=== PATIENT | male | born 1935 | race Caucasian/White ===

== ENCOUNTER 2020-03-14 08:51 | Emergency (ER) | payer MEDICARE, SELFPAY ==
--- NOTE | ~2020-03-14 | XR_ITS ---
EXAMINATION: XR chest 1V portable EXAM DATE: 03/14/2020 09:30 INDICATION: sob and covid + . TECHNIQUE: Portable AP frontal chest x-ray was obtained. There is no prior study for comparison. FINDINGS: Moderate amount of patchy ill-defined bilateral acute airspace disease probably COVID-19 pn eum[place] given history provided. No pneumothorax or pleural effusion. The cardiomediastinal silhouette is prominent but magnified on this AP technique. There is aortic arteriosclerosis. IMPRESSION: Moderate patchy bilateral ill-defined acute airspace disease, clinical correlation. Reviewed, dictated and finalized at location B. ER MOUTH CUTTER IMPRESSION: Moderate patchy bilateral ill-defined acute airspace disease, clin ical correlation.
[2020-03-14 08:54] VITALS: BP 138/55; PULSE 64; RESP 14; TEMP 36.6; O2SAT 100
--- NOTE | 2020-03-14 08:59 | ECG_ITS ---
Measurements Intervals [place] Rate: 64 P: 58 [place]: 197 QRS: 124 QRSD: 113 T: 75 QT: 410 QTc: 424 Interpretive Statements SINUS RHYTHM BASELINE WANDER- I, II, AVR, AVL, AVF, V1-V6 BORDERLINE ECG Electronically Signed On 03-14-2020 9:21:18 ENVIRONMENTAL EPIDEMIOLOGIST by Leonidas Handy D.O.
[2020-03-14 09:01] VITALS: PULSE 62; O2SAT 100
[2020-03-14 09:14] LABS: Hematocrit 38.7 % (42.0-52.0); Hemoglobin 13.4 g/dL (14.0-18.0); Mean Corpuscular HGB Conc 34.6 g/dl (32-36); Mean Corpuscular Hemoglobin 31.7 pg (26-34); Mean Corpuscular Volume 91.5 fl (80-100); Mean Platelet Volume 10.5 fl (7.4-10.4); Platelet Count Result 234 k/mm3 (150-375); Red Blood Count 4.23 M/mm3 (4.6-6.20); Red Cell Distribution Width 12.3 % (11.5-14.5); White Blood Count 7.2 K/mm3 (4.5-10.0)
--- NOTE | 2020-03-14 09:14 | PC.NURSE ---
Patient poor historian, unable to provide complete past medical history or medications.
[2020-03-14 09:16] VITALS: BP 130/58; PULSE 62; RESP 12; O2SAT 96
[2020-03-14 09:26] LABS: Alanine Aminotransferase 21 U/L (4-50); Alkaline Phosphatase 53 U/L (38-126); Anion Gap 10 mmol/L (8-16); Aspartate Amino Transferase 35 U/L (17-59); Bilirubin,Total 0.6 mg/dL (0.2-1.3); Blood Urea Nitrogen 30 mg/dL (9-20); Calcium 9.3 mg/dL (8.4-10.2); Carbon Dioxide 25 mmol/L (22-30); Chloride 101 mmol/L (98-107); Estimated Glomerular Filt Rate 34; Glucose 139 mg/dL (75-110); Potassium 3.8 mmol/L (3.4-5.0); Sodium 136 mmol/L (137-145)
[2020-03-14 09:27] LABS: Lactic Acid Reflex 1.7 mmol/L (0.7-2.1)
[2020-03-14 09:34] LABS: Monocytes Absolute Manual 1.36 K/mm3 (0.1-0.90); Monocytes Percent Manual 19 % (3-9); Neutrophils Percent Manual 49 % (46-73); Platelet Estimate Adequate (Adequate); Total Cells Counted 100
--- NOTE | 2020-03-14 10:45 | ED.SOB ---
HPI - SOB/Dyspnea General Chief Complaint: Shortness of Breath/Dyspnea Stated Complaint: WEAKNESS Time Seen by Provider: 03/14/20 08:57 Source: patient Mode of arrival: EMS Limitations: no limitations History of Present Illness HPI Narrative: 84-year-old with a history of transitional cell carcinoma of the bladder, recent diagnosis of Covid was sent from home with complaints of marked weakness and mild shortness of breath as per the daughter he had old low O2 saturations of 84% however upon EMS arrival on room air he started 98%. Patient presently denies any chest pain, shortness of breath he states that he just feels weak. No history of nausea, vomiting or diarrhea. MD elicited complaint: shortness of breath Exacerbating factors: nothing Associated symptoms: denies other symptoms Related Data Home Medications Medication Instructions Recorded Confirmed Unable to Obtain Home Medications 03/14/20 03/14/20 Allergies Allergy/AdvReac Type Severity Reaction Status Date / Time No Known Allergies Verified 08/21/10 07:03 Review of Systems Review of Systems: All systems reviewed & are unremarkable except as noted in HPI and below Eyes: Eyes: Reports as per HPI Cardiovascular: Cardiovascular: Reports no additional cardiovascular complaints Respiratory: Respiratory: Reports no additional respiratory complaints Gastrointestinal: Gastrointestinal: Reports no additional gastrointestinal complaints Musculoskeletal: Musculoskeletal: Reports no additional musculoskeletal complaints Neurologic: Reports system reviewed and no additional complaints, except as documented PMFSH Family History Family History Father Cerebrovascular accident Sibling Cerebrovascular accident Social History Social History Smoking status: Former smoker Second hand tobacco smoke exposure: No Smoking end date: 04/21/05 Alcohol intake: current Exam Narrative: Exam Narrative: GENERAL: Well-appearing, well-nourished, and in no acute distress. HEAD: Normocephalic, atraumatic. EYES: PERRLA and EOMI.. NECK: Supple. CHEST: Clear to auscultation. No respiratory distress. HEART: Regular rate and rhythm. No murmur heard. Normal peripheral pulses. ABDOMEN: Soft, nontender, nondistended, normal active bowel sounds. EXTREMITIES: Normal range of motion. No edema. SKIN: Warm, dry, no rash. NEURO: No focal deficits. Alert and oriented x3. PSYCH: Normal mood and affect. Course Course Emergency Course: Inform patient about his lab work, x-ray findings. He is oxygen saturations are 98 to 96% here in the ER. He is presently denies having any chest discomfort. Prefers to go home. Advised him to return to the ER if he gets worse. Vital Signs Vital signs: Vital Signs Temperature 36.6 C 03/14/20 08:54 Pulse Rate 64 03/14/20 08:54 Respiratory Rate 14 03/14/20 08:54 Blood Pressure 138/55 L 03/14/20 08:54 Pulse Oximetry 100 03/14/20 08:54 Temperature 36.6 C 03/14/20 08:54 Pulse Rate 62 03/14/20 09:16 Respiratory Rate 12 03/14/20 09:16 Blood Pressure 130/58 L 03/14/20 09:16 Pulse Oximetry 96 03/14/20 09:16 MDM - SOB/Dyspnea Lab Data Result diagrams: 03/14/20 09:02 03/14/20 09:02 Labs: Lab Results 03/14/20 03/14/20 03/14/20 Range/Units 09:02 09:02 09:02 WBC 7.2 (4.5-10.0) K/mm3 RBC 4.23 L (4.6-6.20) M/mm3 Hgb 13.4 L (14.0-18.0) g/dL Hct 38.7 L (42.0-52.0) % MCV 91.5 (80-100) fl MCH 31.7 (26-34) pg MCHC 34.6 (32-36) g/dl RDW 12.3 (11.5-14.5) % Plt Count 234 (150-375) k/mm3 MPV 10.5 H (7.4-10.4) fl Immature Gran % (Auto) Not Reportable Neut % (Auto) Not Reportable Lymph % (Auto) Not Reportable [place] % (Auto) Not Reportable Eos % (Auto) Not Reportable Baso % (Auto) Not Reportable Lymph #
[2020-03-14 12:33] VITALS: BP 122/63; PULSE 59; RESP 19; TEMP 37.1; O2SAT 98
== END 2020-03-14 12:35 | disposition home or self-care (01) ==
PROVIDERS: Emergency Provider Family Medicine
DX: U07.1 COVID-19 (principal); R53.1 Weakness; Z85.51 Personal history of malignant neoplasm of bladder
CPT/HCPCS: 36415; 71045; 80053; 83605; 85025; 87040; 93005; 99283

== ENCOUNTER 2023-07-03 12:35 | Observation (INO) | payer MEDICARE, SELFPAY ==
[2023-07-03] VITALS (9 sets, daily range): BP systolic 130–164; BP diastolic 60–98; PULSE 55–96; RESP 14–41; TEMP 36.2–36.8; O2SAT 98–100; BMI 30.9; BMI 31.1
--- NOTE | ~2023-07-03 | XR_ITS ---
EXAMINATION: XR chest 1V portable DATE: 07/03/2023 14:08 INDICATION: Shortness of breath. TECHNIQUE: A single frontal view of the chest was obtained. COMPARISON: Chest single view 03/14/2020 FINDINGS: There is mild atelectasis at left lung base. No pleural effusion or pneumothorax. The heart size is normal. IMPRESSION: 1. Mild atelectasis at left lung base. Reviewed, dictated and finalized at location A.
--- NOTE | 2023-07-03 13:00 | ECG_ITS ---
Measurements Intervals [place] Rate: 62 P: 56 [place]: 196 QRS: 97 QRSD: 101 T: 51 QT: 400 QTc: 408 Interpretive Statements SINUS RHYTHM RIGHT AXIS DEVIATION BASELINE ARTIFACT- II, III, AVR, AVL, AVF, V2-V3 BORDERLINE ECG COMPARED TO ECG 03/14/2020 08:58:39 NO SIGNIFICANT CHANGES Electronically Signed On 07-03-2023 13:06:45 CDT by Leonidas Handy D.O.
[2023-07-03 13:18] LABS: Basophils Absolute Auto 0.1 K/mm3 (0.0-0.1); Basophils Percent Auto 0.7 % (0.2-1.2); Eosinophils Absolute Auto 0.3 K/mm3 (0-0.3); Eosinophils Percent Auto 2.3 % (0-4.4); Hemoglobin 13.4 g/dL (14.0-18.0); Immature Granulocyte Absolute 0.06 K/mm3 (0.00-0.031); Immature Granulocyte Percent A 0.5 % (0-0.5); Lymphocytes Percent Auto 30.2 % (18.3-44.2); Mean Corpuscular HGB Conc 33.5 g/dl (32-36); Mean Corpuscular Hemoglobin 31.2 pg (26-34); Mean Corpuscular Volume 93.2 fl (80-100); Mean Platelet Volume 10.6 fl (7.4-10.4); Monocytes Absolute Auto 1.4 K/mm3 (0.1-0.6); Monocytes Percent Auto 12.3 % (2.6-8.5); Neutrophils Absolute Auto 6.3 K/mm3 (1.3-6.7); Platelet Count Result 229 k/mm3 (150-375); Red Blood Count 4.29 M/mm3 (4.6-6.20); Red Cell Distribution Width 13.2 % (11.5-14.5); White Blood Count 11.6 K/mm3 (4.5-10.0)
[2023-07-03 13:29] LABS: Alanine Aminotransferase 25 U/L (6-50); Albumin Level 3.9 g/dL (3.5-5.1); Alkaline Phosphatase 71 U/L (38-126); Anion Gap 7 mmol/L (8-16); Aspartate Amino Transferase 27 U/L (17-59); Bilirubin,Total 0.4 mg/dL (0.2-1.3); Blood Urea Nitrogen 25 mg/dL (9-20); Calcium 9.5 mg/dL (8.4-10.2); Carbon Dioxide 23 mmol/L (22-30); Chloride 107 mmol/L (98-107); Estimated CRCL calculation 33 ml/min; Estimated Glomerular Filt Rate 41; Glucose 150 mg/dL (65-110); Potassium 3.8 mmol/L (3.4-5.0); Sodium 137 mmol/L (137-145)
[2023-07-03 13:54] LABS: Influenza A QL RT-PCR Negative (Negative); Influenza B QL RT-PCR Negative (Negative); RSV RNA, RT-PCR Negative (Negative); SARS-CoV-2 RNA PCR Negative (Negative)
[2023-07-03] MEDS: SODIUM CHLORIDE 0.9% IV 1,000 ML 999 ML IV CONT (14:39)
[2023-07-03 14:54] LABS: Appearance Urine Turbid (Clear); Bacteria Urine 4+ /hpf; Bilirubin Urine Negative (Negative); Blood Urine 3+ (Negative); Color Urine Dark Yellow (Yellow); Glucose Urine UA Negative (Negative); Ketones Urine Trace mg/dL (Negative); Leukocyte Esterase Ur 3+ LEU/UL (Negative); Need Manual Microscopic Reviewed; Nitrate Urine Positive (Negative); Non Pathogenic Casts >20; Protein Urine 1+ mg/dL (Negative); RBC Urine >100 /hpf (0-2); Squamous Epithelial Cell Urine None Seen /hpf (Few); WBC Urine >100 /hpf (0-3); pH Urine 7.5 (5.0-9.0)
[2023-07-03 14:59] LABS: Add Urine Microscopic? YES
--- NOTE | 2023-07-03 15:30 | ED.GENADULT ---
HPI - General Adult General Chief complaint: Shortness of Breath/Dyspnea Stated complaint: difficulty breathing Time Seen by Provider: 07/03/23 13:34 History of Present Illness HPI narrative: patient is an 80-year-old male who presents ER with reports of increased weakness and potentially difficulty breathing. Patient was at his alf bone he was struggling with his mealtime and tells me he thought he was short of breath. Patient has known dementia. He has no complaints at this time. He appears somnolent withdrawn. Related Data Home Medications Medication Instructions Recorded Confirmed donepezil 10 mg tablet 10 mg PO QHS 07/03/23 07/03/23 donepezil 5 mg tablet 5 mg PO QHS 07/03/23 07/03/23 finasteride 5 mg tablet 5 mg PO DAILY 07/03/23 07/03/23 lorazepam 0.5 mg tablet 0.5 mg PO BID PRN 07/03/23 07/03/23 anxiety/restlessness losartan 25 mg tablet 25 mg PO DAILY 07/03/23 07/03/23 meclizine 25 mg tablet 25 mg PO Q8H PRN Dizziness Or 07/03/23 07/03/23 Vertigo [id number] 300 mcg-K 60 1 tablet PO QAM 07/03/23 07/03/23 mcg-lycop 600 mcg-lutein 300 mcg tablet (Centrum Silver Ultra Men's) terazosin 5 mg capsule 5 mg PO DAILY 07/03/23 07/03/23 Allergies Allergy/AdvReac Type Severity Reaction Status Date / Time No Known Allergies Verified 07/03/23 13:06 Review of Systems Review of Systems: ROS unobtainable: Yes unobtainable due to mental status [facility] Past Medical History Medical History (Updated 07/03/23 @ 18:20 by Merlin Mitchell MD) BPH (benign prostatic hyperplasia) CKD (chronic kidney disease) Degenerative joint disease Diverticulosis History of anal fissures History of peptic ulcer disease gastric ulcerations and duodenal ulcer June 2010 Hx of Hpylori HTN (hypertension), benign Hx of bladder cancer 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 He quit smoking in 2019. No alcohol or drug use. Code status - DNR Smoking status: Former smoker Second hand tobacco smoke exposure: No Alcohol intake: current Substance use: never Spiritual care concerns: No Exam Narrative: GENERAL: fatigue-appearing, well-nourished, and in no acute distress. HEAD: Normocephalic, atraumatic. ENT: Mucous membranes moist. NECK: Supple. CHEST: Clear to auscultation. No respiratory distress. HEART: Regular rate and rhythm. Normal peripheral pulses. ABDOMEN: Soft, nontender, nondistended. EXTREMITIES: Normal range of motion. No edema. SKIN: Warm, dry, no rash. NEURO: Alert and oriented x1. PSYCH: Normal mood and affect. Course Course Emergency Course: Patient with significant UTI. Recommend observation. He appears dry as well. After 1 L of IV fluid he is more energetic. Vital Signs Vital signs: Vital Signs Temperature 98.2 F 07/03/23 12:37 Pulse Rate 68 07/03/23 12:37 Respiratory Rate 20 07/03/23 12:37 Blood Pressure 155/67 H 07/03/23 12:37 Pulse Oximetry 100 07/03/23 12:37 Oxygen Delivery Room Air 07/03/23 12:37 Temperature 97.7 F 07/03/23 17:26 Pulse Rate 65 07/03/23 17:26 Respiratory Rate 18 07/03/23 17:26 Blood Pressure 156/69 H 07/03/23 17:26 Pulse Oximetry 99 07/03/23 17:26 Oxygen Delivery Room Air 07/03/23 17:59 Medical Decision Making Vital Signs
--- NOTE | 2023-07-03 17:20 | PM.IMHP ---
H&P: HPI History of Present Illness Date/Time: 07/03/23 17:20 Chief Complaint: Shortness of breath Narrative: 88yo male with hx of bladder cancer, CKD, dementia and enlarged prostate here for shortness of breath. Patient is alert but confused and unable to provide history. History obtained from 2 daughters in the room. Patient has known bladder cancer and enlarged prostate and follows with Urology (Dr Ngo) at [facility] yearly. He was last seen about 18 months ago (missed last appointment due to his 's illness) with cystoscopy. Last report here dated 08/04/13 showed no bladder cancer but showing obstructive prostate. The patient's passes away 6 weeks ago and the patient was moved to [facility] about 5 weeks ago. He is what sounds like assisted living memory care unit. He is receiving PT/OT infrequently there. He does sleep a lot per family which is chronic but he has been participating in activities. Nursing notes state patient is alert and orient x1. He was doing well until the day of admission when OT noted patient was more unsteady on his feet and recommended walker instead of his cane. Patient at lunch today was not eating much and subsequently developed shortness of breath. EMS was called and vital signs were stable except RR 24 with SpO2 98%. He was also dizzy but no other symptoms per family. In the ED, his vital signs were stable with RR 20 and 100% on room air. He had trouble voiding but was eventually able to do so without assistance. Influenza, COVID and RSV PCR were negative. WBC 11.6K without shift but with a monocytosis, Cr 1.6, glucose 150 and a UA consistent with UTI. CXR reviewed personally showing mild atelectasis left lung base. EKG showing normal sinus rhythm without change froom prior EKGs. Blood and urine cultures obtained and started on Rocephin. He was also given IVF fluids. He was admitted for further care. 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 Hx of colonic polyps Hx of vertigo Hypercholesterolemia Meniere's disease, unspecified ear Unspecified dementia, unspecified severity, without behavioral disturbance, psychotic disturbance, mood disturbance, and anxiety Surgical History Surgical History (Updated 07/03/23 @ 17:31 by Merlin Mitchell MD) 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 He quit smoking in 2019. No alcohol or drug use. Code status - DNR Smoking status: Former smoker Second hand tobacco smoke exposure: No Alcohol intake: current Substance use: never Spiritual care concerns: No Meds Home Medications and Allergies Home Medications Medication Instructions Recorded Confirmed Type donepezil 10 mg tablet 10 mg PO QHS 07/03/23 07/03/23 History donepezil 5 mg tablet 5 mg PO QHS 07/03/23 07/03/23 History finasteride 5 mg tablet 5 mg PO DAILY 07/03/23 07/03/23 History lorazepam 0.5 mg tablet 0.5 mg PO BID PRN 07/03/23 07/03/23 History anxiety/restlessness losartan 25 mg tablet 25 mg PO DAILY 07/03/23 07/03/23 History meclizine 25 mg tablet 25 mg PO Q8H PRN Dizziness Or 07/03/23 07/03/23 History Vertigo dlnulczd-gk-djzpo 300 mcg-K 60 1 tablet PO QAM 07/03/23 07/03/23 History mcg-lycop 600 mcg-lutein 300 mcg tablet (Centrum Silver Ultra Men's) terazosin 5 mg caps
--- NOTE | 2023-07-03 17:34 | ADMGEN ---
This patient, Jeramy Perez, was admitted to Medical Room 244-. Patient/family oriented to hospital policies and general routines including ID bracelet, bed and alarms, visiting hours, pain management, procedures, bathroom and other care routines, personal items, smoking policy, room service/diet, and visiting hours. Information on how to activate the Rapid Response Team has been discussed. Patient/Family are encouraged to report perceived risks to care and to ask questions if they do not understand what they are told or what they should do.
[2023-07-03] MEDS: DONEPEZIL HCL 5 MG TABLET PO (20:23)
[2023-07-03] MEDS: DONEPEZIL HCL 10 MG TABLET PO (20:23)
[2023-07-03] MEDS: LORazepam (*CRX) 0.5 MG TABLET PO (21:48)
[2023-07-04 05:29] VITALS: BP 144/57; RESP 20; TEMP 36.1; O2SAT 98
[2023-07-04 06:09] LABS: Basophils Absolute Auto 0.1 K/mm3 (0.0-0.1); Basophils Percent Auto 0.8 % (0.2-1.2); Eosinophils Absolute Auto 0.3 K/mm3 (0-0.3); Eosinophils Percent Auto 2.9 % (0-4.4); Hematocrit 38.3 % (42.0-52.0); Hemoglobin 12.7 g/dL (14.0-18.0); Immature Granulocyte Absolute 0.06 K/mm3 (0.00-0.031); Immature Granulocyte Percent A 0.5 % (0-0.5); Lymphocytes Absolute Auto 3.72 K/mm3 (0.9-3.2); Lymphocytes Percent Auto 33.2 % (18.3-44.2); Mean Corpuscular HGB Conc 33.2 g/dl (32-36); Mean Corpuscular Hemoglobin 31.3 pg (26-34); Mean Corpuscular Volume 94.3 fl (80-100); Mean Platelet Volume 10.5 fl (7.4-10.4); Monocytes Absolute Auto 1.5 K/mm3 (0.1-0.6); Monocytes Percent Auto 13.4 % (2.6-8.5); Neutrophils Absolute Auto 5.5 K/mm3 (1.3-6.7); Neutrophils Percent Auto 49.2 % (45.5-73.1); Platelet Count Result 222 k/mm3 (150-375); Red Blood Count 4.06 M/mm3 (4.6-6.20); Red Cell Distribution Width 13.1 % (11.5-14.5); White Blood Count 11.2 K/mm3 (4.5-10.0)
[2023-07-04 06:20] LABS: Albumin Level 3.6 g/dL (3.5-5.1); Anion Gap 8 mmol/L (8-16); Blood Urea Nitrogen 23 mg/dL (9-20); Carbon Dioxide 21 mmol/L (22-30); Chloride 108 mmol/L (98-107); Estimated CRCL calculation 31 ml/min; Estimated Glomerular Filt Rate 38; Glucose 100 mg/dL (65-110); Phosphorus 3.7 mg/dL (2.5-4.5); Potassium 3.7 mmol/L (3.4-5.0); Sodium 137 mmol/L (137-145)
[2023-07-04] MEDS: OPTI-GEN TAB 1 TABLET PO (08:22)
[2023-07-04] MEDS: TERAZOSIN HCL 5 MG CAPSULE PO (08:22)
[2023-07-04] MEDS: LOSARTAN POTASSIUM 25 MG TABLET PO (08:22)
[2023-07-04] MEDS: FINASTERIDE 5 MG TABLET PO (08:23)
[2023-07-04 08:55] LABS: Free T4 Free Thyroxine Reflex 0.83 ng/dL (0.78-2.19)
[2023-07-04] MEDS: ENOXAPARIN 40 MG/0.4 ML SYRINGE SUB-Q (10:23)
[2023-07-04 11:25] LABS: Total Triiodothyronine (T3) 1.09 NG/ML (0.97-1.69)
[2023-07-04 14:00] VITALS: BP 148/55; PULSE 63; RESP 20; TEMP 36.6; O2SAT 100
--- NOTE | 2023-07-04 14:16 | PC.NURSE ---
On 07/04/23, the student, [Robbie Foley], provided care and completed [facility] documentation on this patient. I have reviewed the student's documentation and agree with the findings.
--- NOTE | 2023-07-04 15:32 | PM.IMPN ---
Progress Note: A&P Assessment and Plan (1) Acute UTI: Code(s): N39.0 - Urinary tract infection, site not specified Status: Acute Assessment and Plan: Patient presents with SOB and found to have UTI. He was having trouble voiding so his SOB could be related to difficulty voiding and/or anxiety. UA is consistent with UTI. UCx and BCx collected. Rocephin started. Follow up on Cx results. (2) BPH (benign prostatic hyperplasia): Code(s): N40.0 - Benign prostatic hyperplasia without lower urinary tract symptoms Status: Acute Assessment and Plan: Patient had trouble voiding in the ED but resolved and no clinical evidence of retention. We continued finasteride and terazosin. PVR ordered (3) CKD (chronic kidney disease): Code(s): N18.9 - Chronic kidney disease, unspecified Status: Acute Assessment and Plan: Patient has CKD with last Cr listed being 1.9 in 2019. Cr here is 1.6-1.7 so well within his baseline. Follow. (4) HTN (hypertension), benign: Code(s): I10 - Essential (primary) hypertension Status: Acute Assessment and Plan: Patient's blood pressure elevated on admission but could be related to stress and pain (retention?). Patient's blood pressure was reviewed on 07/03 Blood pressure remains reasonably well controlled. Will continue to monitor (5) Hx of bladder cancer: Code(s): Z85.51 - Personal history of malignant neoplasm of bladder Status: Acute Assessment and Plan: Patient has a hx of bladder CA and is being followed yearly by [facility] Urology. Recommended patient get back in to see the Urologist once his infection has cleared. (6) Unspecified dementia, unspecified severity, without behavioral disturbance, psychotic disturbance, mood disturbance, and anxiety: Code(s): F03.90 - Unspecified dementia, unspecified severity, without behavioral disturbance, psychotic disturbance, mood disturbance, and anxiety Status: Acute Assessment and Plan: Patient with dementia with behavioral disturbance. We resumed his donepezil. Minimize distractions. Lorazepam prn for agitation. Spoke with daughters and they agreed to DNR status so code status changed. PT/OT ordered since he is probably assisted living memory care and will need evaluation before he can return Plan DVT prophylaxis - Lovenox Code status - DNR Subjective Date/time seen: 07/04/23 15:32 Interval history: 88yo male with hx of bladder cancer, CKD, dementia and enlarged prostate here for shortness of breath found to have UTI.? No complaints. He is alert but confused so hx unreliable Review of Systems Review of Systems: ROS unobtainable: Yes unobtainable due to mental status Exam Narrative: AF 97.8 148/55 63 20 100% ra Gen - NARD Chest - clear anteriorly CV - RRR S1/S2 Abd - Soft, NT/ND, Positive BS. bladder does not feel distended Ext - No pedal edema Psych - Nml mood and affect Skin - Warm and dry Objective Data Vital Signs Vital Signs: Vital Signs - 24 hr 07/03/23 15:59 07/03/23 16:31 07/03/23 17:26 Temperature 97.7 F Pulse Rate 55 L 60 65 Respiratory Rate 18 41 H 18 Blood Pressure 147/94 H 149/98 H 156/69 H Pulse Oximetry 100 99 99 Oxygen Delivery 07/03/23 17:59 07/03/23 20:10 07/03/23 20:00 Temperature 97.2 F L Pulse Rate 63 Respiratory Rate 20 Blood Pressure 130/60 Pulse Oximetry 98 Oxygen Delivery Room Air Room Air 07/04/23 05:29 07/04/23 09:38 07/04/23 10:03 Temperature 96.9 F L Pulse Rate Respiratory Rate 20 Blood Pressure 144/57 H Pulse Oximetry 98 Oxygen Delivery Room Air Room Air 07/04/23 09:00 07/04/23 14:00 07/04/23 08:20 Temperature 97.8 F Pulse Rate 63 Respiratory Rate 20 Blood Pressure 148/55 H Pulse Oximetry 100 Oxygen Delivery Room Air Room Air Intake/Output Intake/Output: Intake & Output 07/01/23 07/02/23
[2023-07-04] MEDS: DONEPEZIL HCL 10 MG TABLET PO (20:08)
[2023-07-04] MEDS: DONEPEZIL HCL 5 MG TABLET PO (20:08)
[2023-07-04 20:19] VITALS: BP 160/63; PULSE 58; RESP 18; TEMP 36.4; O2SAT 98
[2023-07-05 05:47] LABS: Basophils Absolute Auto 0.1 K/mm3 (0.0-0.1); Basophils Percent Auto 0.7 % (0.2-1.2); Eosinophils Absolute Auto 0.3 K/mm3 (0-0.3); Eosinophils Percent Auto 3.4 % (0-4.4); Hemoglobin 13.2 g/dL (14.0-18.0); Immature Granulocyte Absolute 0.07 K/mm3 (0.00-0.031); Immature Granulocyte Percent A 0.7 % (0-0.5); Immature Platelet Fraction Pct 9.9 % (0.9-11.2); Lymphocytes Absolute Auto 3.27 K/mm3 (0.9-3.2); Lymphocytes Percent Auto 32.7 % (18.3-44.2); Mean Corpuscular HGB Conc 32.2 g/dl (32-36); Mean Corpuscular Hemoglobin 30.8 pg (26-34); Mean Corpuscular Volume 95.8 fl (80-100); Mean Platelet Volume 11.2 fl (7.4-10.4); Monocytes Absolute Auto 1.3 K/mm3 (0.1-0.6); Monocytes Percent Auto 12.5 % (2.6-8.5); Platelet Count Result 148 k/mm3 (150-375); Red Blood Count 4.28 M/mm3 (4.6-6.20); Red Cell Distribution Width 12.8 % (11.5-14.5)
[2023-07-05 05:55] LABS: Anion Gap 9 mmol/L (8-16); Blood Urea Nitrogen 20 mg/dL (9-20); Calcium 9.5 mg/dL (8.4-10.2); Carbon Dioxide 20 mmol/L (22-30); Chloride 107 mmol/L (98-107); Estimated CRCL calculation 35 ml/min; Estimated Glomerular Filt Rate 44; Glucose 102 mg/dL (65-110); Potassium 3.6 mmol/L (3.4-5.0); Sodium 136 mmol/L (137-145)
[2023-07-05 06:00] VITALS: BP 149/84; PULSE 56; RESP 18; TEMP 36.8; O2SAT 100
[2023-07-05] MEDS: FINASTERIDE 5 MG TABLET PO (09:02)
[2023-07-05] MEDS: OPTI-GEN TAB 1 TABLET PO (09:03)
[2023-07-05] MEDS: ENOXAPARIN 40 MG/0.4 ML SYRINGE SUB-Q (09:03)
[2023-07-05] MEDS: TERAZOSIN HCL 5 MG CAPSULE PO (09:03)
[2023-07-05] MEDS: LOSARTAN POTASSIUM 25 MG TABLET PO (09:03)
--- NOTE | 2023-07-05 12:20 | PM.DS ---
DS: Admitting Diagnosis Discharge Date 07/05/23 Admitting Diagnosis Shortness of breath DS: Discharge Diagnosis Discharge Diagnosis (1) Acute UTI: Code(s): N39.0 - Urinary tract infection, site not specified Status: Acute (2) BPH (benign prostatic hyperplasia): Code(s): N40.0 - Benign prostatic hyperplasia without lower urinary tract symptoms Status: Acute (3) CKD (chronic kidney disease): Code(s): N18.9 - Chronic kidney disease, unspecified Status: Acute (4) HTN (hypertension), benign: Code(s): I10 - Essential (primary) hypertension Status: Acute (5) Hx of bladder cancer: Code(s): Z85.51 - Personal history of malignant neoplasm of bladder Status: Acute (6) Unspecified dementia, unspecified severity, without behavioral disturbance, psychotic disturbance, mood disturbance, and anxiety: Code(s): F03.90 - Unspecified dementia, unspecified severity, without behavioral disturbance, psychotic disturbance, mood disturbance, and anxiety Status: Acute DS: Summary Hospital Course Reason for hospitalization: 88yo male with hx of bladder cancer, CKD, dementia and enlarged prostate here for shortness of breath found to have UTI.?Please see H&P for details. Hospital Course: Patient presents with SOB. In the ED, his vital signs were stable with RR 20 and 100% on room air. He had trouble voiding in the ED but was eventually able to void without assistance. Influenza, COVID and RSV PCR were negative. WBC 11.6K without shift but with a monocytosis, Cr 1.6, glucose 150 and a UA consistent with UTI. CXR reviewed personally showing mild atelectasis left lung base. EKG showing normal sinus rhythm without change froom prior EKGs. UA is consistent with UTI. Blood and urine cultures obtained and started on Rocephin. He was also given IVF fluids. We continued finasteride and terazosin. PVR ordered showing only minimal urine retention. Patient has CKD with last Cr listed being 1.9 in 2019. Cr here is 1.6-1.7 and was well within his baseline. Patient's blood pressure was elevated on admission felt related to stress and pain. Blood pressure was reasonably well controlled during his hospital course. Patient with dementia with behavioral disturbance. We resumed his donepezil. Lorazepam prn for agitation. Spoke with daughters and they agreed to DNR status so code status changed. PT/OT ordered since he is assisted living memory care. He did well with therapy. BCx remained negative. UCx grew Morganella sensitive to ceftazidime and Bactrim. CrCl 35 so dose adjustment needed. He overall did well and was able to be discharged on 07/05/23. Status at Discharge Cognitive/behavioral status at discharge: stable Time Spent with Patient Time attestation: Total time spent providing and/or coordinating discharge services: 35 minutes Time spent: Greater than 30 minutes Exam Narrative: AF 98.2 149/84 56 18 100% ra Gen - NARD Chest - CTA bilaterally, nml RR CV - RRR S1/S2 Abd - Soft, NT/ND, Positive BS Ext - No pedal edema Psych - Nml mood and affect Skin - Warm and dry DS: Data Data Completed and Pending Labs on day of discharge: Labs from last 24 hours 07/05/23 05:20 WBC 10.0 RBC 4.28 L Hgb 13.2 L Hct 41.0 L MCV 95.8 MCH 30.8 MCHC 32.2 RDW 12.8 Plt Count 148 L MPV 11.2 H Immature Gran % (Auto) 0.7 H Neut % (Auto) 50.0 Lymph % (Auto) 32.7 [place] % (Auto) 12.5 H Eos % (Auto) 3.4 Baso % (Auto) 0.7 Lymph # (Auto) 3.27 H [place] # (Auto) 1.3 H Eos # (Auto) 0.3 Baso # (Auto) 0.1 Abs Immat Gran (auto) 0.07 H Absolute Neuts (auto) 5.0 Absolute Nucleated RBC 0.000 Nucleated RBC % 0.0 % Immature Plt Fraction 9.9 Sodium 136 L Potassium 3.6 Chloride 107 Carbon Dioxide 20 L Anion Gap 9 BUN 20 Creatinine 1.50 H Estim Creat Clear Calc 35 Estimated GFR 44 L Glucose 102 Calcium 9.5 Preliminary micro results at dischar
== END 2023-07-05 13:45 | disposition home health service (06) ==
LOC: ANHED 15:30 → ANH2MED 17:02
PROVIDERS: Admitting Provider Family Medicine; Emergency Provider Emergency Medicine; PCP Family Medicine; Visit Provider Internal Medicine
DX: N39.0 Urinary tract infection, site not specified (principal); B96.4 Proteus (mirabilis) (morganii) as the cause of diseases classified elsewhere; R53.1 Weakness; I12.9 Hypertensive chronic kidney disease with stage 1 through stage 4 chronic kidney disease, or unspecified chronic kidney disease; N18.9 Chronic kidney disease, unspecified; R94.31 Abnormal electrocardiogram [ECG] [EKG]; Z20.822 Contact with and (suspected) exposure to COVID-19; R06.02 Shortness of breath; F03.90 Unspecified dementia, unspecified severity, without behavioral disturbance, psychotic disturbance, mood disturbance, and anxiety; Z96.641 Presence of right artificial hip joint; N40.0 Benign prostatic hyperplasia without lower urinary tract symptoms; R91.8 Other nonspecific abnormal finding of lung field; Z66 Do not resuscitate; Z87.891 Personal history of nicotine dependence; Z85.51 Personal history of malignant neoplasm of bladder; Z79.899 Other long term (current) drug therapy
CPT/HCPCS: 36415; 71045; 80048; 80053; 80069; 82607; 82746; 84439; 84443; 84480; 85025; 85055; 87040; 87077; 87086; 87088; 87186; 87637; 93005; 96365; 96372; 97110; 97116; 97161; 97165; 99285; A9270; G0378; J0696; J1650; J7030

== ENCOUNTER 2023-07-17 07:38 | Emergency (ER) | payer MEDICARE, SELFPAY ==
[2023-07-17] VITALS (19 sets, daily range): BP systolic 136–141; BP diastolic 71–83; PULSE 58–79; RESP 13–22; TEMP 36.7; O2SAT 90–100
--- NOTE | ~2023-07-17 | CT_ITS ---
EXAMINATION: CT brain wo con DATE: 07/17/2023 11:50 INDICATION: Syncope. TECHNIQUE: Computed tomography (CT) of the head was performed without intravenous contrast. The mA wa s adjusted according to patient size. Iterative reconstruction technique was employed. The dose-lengt h product was 756.67 mGy-cm. COMPARISON: None FINDINGS: There are scattered areas of low attenuation in the cerebral white matter, which is within normal limits for the patient's age. There is no intracranial hemorrhage, acute infarction, or abnorm al intracranial mass lesion. The ventricles are normal in size. The mastoid air cells are normal. The re is mild mucosal thickening in the paranasal sinuses. The orbits are normal. IMPRESSION: 1. Normal aging brain. Reviewed, dictated and finalized at location A. IMPRESSION: 1. Normal aging brain.
--- NOTE | ~2023-07-17 | XR_ITS ---
EXAMINATION: XR chest 1V portable INDICATION: Transient alteration of awareness TECHNIQUE: Portable AP chest at 0843 hours COMPARISON: 07/03/2023 FINDINGS: The lungs are free of acute opacities. No pleural effusion or pneumothorax. Calcified bilat eral hilar lymph nodes are consistent with old granulomatous disease. IMPRESSION: 1. No acute cardiopulmonary abnormality. Reviewed, dictated and finalized at location F.
--- NOTE | 2023-07-17 07:51 | ECG_ITS ---
Measurements Intervals [place] Rate: 57 P: 45 ME: 209 QRS: 102 QRSD: 110 T: 54 QT: 429 QTc: 420 Interpretive Statements SINUS BRADYCARDIA RIGHT AXIS DEVIATION BASELINE ARTIFACT- I, II, III, AVR, AVL, AVF, V1-V6 BORDERLINE ECG COMPARED TO ECG 07/03/2023 13:02:33 SINUS BRADYCARDIA NOW PRESENT Electronically Signed On 07-17-2023 8:35:37 CDT by Leonidas Handy D.O.
--- NOTE | 2023-07-17 07:59 | ED.SYNCOPE ---
HPI - Syncope General Chief Complaint: Syncope Stated Complaint: SYNCOPY Time Seen by Provider: 07/17/23 07:42 Source: patient and family (daughters) Mode of arrival: EMS Limitations: altered mental status and dementia History of Present Illness HPI narrative: Patient presents with concern for a syncopal episode. It is reported he was in the shower. Has been having diarrhea earlier today. Baseline mentation A&O x2. Patient denies any pain (headache, chest pain, abdominal pain, extremity pain). Does not know if he is having diarrhea. Does not remember the fall; unclear LOC. No shortness of breath. Related Data Home Medications Medication Instructions Recorded Confirmed donepezil 10 mg tablet 10 mg PO QHS 07/03/23 07/03/23 donepezil 5 mg tablet 5 mg PO QHS 07/03/23 07/03/23 finasteride 5 mg tablet 5 mg PO DAILY 07/03/23 07/03/23 lorazepam 0.5 mg tablet 0.5 mg PO BID PRN 07/03/23 07/03/23 anxiety/restlessness losartan 25 mg tablet 25 mg PO DAILY 07/03/23 07/03/23 meclizine 25 mg tablet 25 mg PO Q8H PRN Dizziness Or 07/03/23 07/03/23 Vertigo odzpmfwc-fg-cssvw 300 mcg-K 60 1 tablet PO QAM 07/03/23 07/03/23 mcg-lycop 600 mcg-lutein 300 mcg tablet (Centrum Silver Ultra Men's) terazosin 5 mg capsule 5 mg PO DAILY 07/03/23 07/03/23 Allergies Allergy/AdvReac Type Severity Reaction Status Date / Time No Known Allergies Verified 07/03/23 13:06 [facility] Past Medical History Medical History (Updated 07/18/23 @ 00:01 by Nikkie Hare) BPH (benign prostatic hyperplasia) CKD (chronic kidney disease) Degenerative joint disease Diverticulosis History of anal fissures History of peptic ulcer disease gastric ulcerations and duodenal ulcer June 2010 Hx of Hpylori HTN (hypertension), benign Hx of bladder cancer 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. He quit smoking in 2019. No alcohol or drug use. Code status - DNR Smoking status: Former smoker Second hand tobacco smoke exposure: No Alcohol intake: current Substance use: never Spiritual care concerns: No Exam Narrative: GENERAL: Well-appearing, well-nourished, and in no acute distress. HEAD: Normocephalic, atraumatic. No palpable hematoma. No laceration/abrasion/contusion. EYES: Non injected, non icteric ENT: Nares clear, no rhinorrhea or epistaxis. NECK: Supple. CHEST: Clear to auscultation. No respiratory distress. HEART: Regular rate and rhythm. . ABDOMEN: Soft, nondistended. No tenderness to palpation. EXTREMITIES: Normal range of motion. No edema. Palpated and without bony deformity. pelvis stable to compression. SKIN: Warm, dry, no rash. NEURO: No focal deficits. Alert ; able to answer simple/basic questions but unable to answer details about health history. PSYCH: Normal mood and affect. Course Vital Signs Vital signs: Vital Signs Temperature 98.1 F 07/17/23 07:42 Pulse Rate 59 L 07/17/23 07:42 Respiratory Rate 19 07/17/23 07:42 Blood Pressure 141/83 H 07/17/23 07:42 Pulse Oximetry 100 07/17/23 07:42 Oxygen Delivery Room Air 07/17/23 07:42 Temperature 98.1 F 07/17/23 07:42 Pulse Rate 72 07/17/23 14:58 Respiratory Rate 13 07/17/23 14:58 Blood Pressure 136/71 07/17/23 14:58 Pulse Oximetry 99 07/17/23 14:58 Oxyg
[2023-07-17 08:03] LABS: Basophils Absolute Auto 0.1 K/mm3 (0.0-0.1); Basophils Percent Auto 0.3 % (0.2-1.2); Eosinophils Absolute Auto 0.2 K/mm3 (0-0.3); Eosinophils Percent Auto 1.3 % (0-4.4); Hematocrit 40.7 % (42.0-52.0); Hemoglobin 13.6 g/dL (14.0-18.0); Immature Granulocyte Absolute 0.08 K/mm3 (0.00-0.031); Immature Granulocyte Percent A 0.5 % (0-0.5); Lymphocytes Absolute Auto 2.36 K/mm3 (0.9-3.2); Lymphocytes Percent Auto 16.1 % (18.3-44.2); Mean Corpuscular HGB Conc 33.4 g/dl (32-36); Mean Corpuscular Hemoglobin 31.5 pg (26-34); Mean Corpuscular Volume 94.2 fl (80-100); Mean Platelet Volume 10.4 fl (7.4-10.4); Monocytes Absolute Auto 1.4 K/mm3 (0.1-0.6); Monocytes Percent Auto 9.2 % (2.6-8.5); Neutrophils Absolute Auto 10.7 K/mm3 (1.3-6.7); Neutrophils Percent Auto 72.6 % (45.5-73.1); Platelet Count Result 226 k/mm3 (150-375); Red Blood Count 4.32 M/mm3 (4.6-6.20); White Blood Count 14.7 K/mm3 (4.5-10.0)
[2023-07-17 08:13] LABS: Alanine Aminotransferase 24 U/L (6-50); Alkaline Phosphatase 65 U/L (38-126); Anion Gap 9 mmol/L (4-12); Aspartate Amino Transferase 23 U/L (17-59); Bilirubin,Total 0.6 mg/dL (0.2-1.3); Blood Urea Nitrogen 27 mg/dL (9-20); Calcium 9.3 mg/dL (8.4-10.2); Carbon Dioxide 20 mmol/L (22-30); Chloride 106 mmol/L (98-107); Estimated CRCL calculation 30 ml/min; Estimated Glomerular Filt Rate 38; Glucose 181 mg/dL (65-110); Potassium 4.2 mmol/L (3.4-5.0); Sodium 135 mmol/L (137-145)
--- NOTE | 2023-07-17 09:52 | PC.NURSE ---
patient is unable to give urine at this time, patient's family declines straight cath due to patient having bladder surgery in the past.
[2023-07-17 10:08] LABS: Magnesium 1.5 mg/dL (1.6-2.3)
[2023-07-17 10:28] LABS: Influenza A QL RT-PCR Negative (Negative); Influenza B QL RT-PCR Negative (Negative); RSV RNA, RT-PCR Negative (Negative); SARS-CoV-2 RNA PCR Negative (Negative)
[2023-07-17] MEDS: MAGNESIUM SULF 1 GM/D5W 100 ML 1 GM/100 ML BAG IVPB (10:28)
== END 2023-07-17 15:00 ==
PROVIDERS: Emergency Provider Student in an Organized Health Care Education/Training Program; PCP Family Medicine
DX: R55 Syncope and collapse (principal); R19.7 Diarrhea, unspecified; D64.9 Anemia, unspecified; E83.42 Hypomagnesemia; D72.829 Elevated white blood cell count, unspecified; R00.1 Bradycardia, unspecified; I44.0 Atrioventricular block, first degree; R94.31 Abnormal electrocardiogram [ECG] [EKG]; Z20.822 Contact with and (suspected) exposure to COVID-19; F03.90 Unspecified dementia, unspecified severity, without behavioral disturbance, psychotic disturbance, mood disturbance, and anxiety; I12.9 Hypertensive chronic kidney disease with stage 1 through stage 4 chronic kidney disease, or unspecified chronic kidney disease; N18.9 Chronic kidney disease, unspecified; N40.0 Benign prostatic hyperplasia without lower urinary tract symptoms; E78.00 Pure hypercholesterolemia, unspecified; Z66 Do not resuscitate; Z96.641 Presence of right artificial hip joint; Z87.11 Personal history of peptic ulcer disease; Z85.51 Personal history of malignant neoplasm of bladder; Z86.010 Personal history of colon polyps; Z87.891 Personal history of nicotine dependence
CPT/HCPCS: 36415; 70450; 71045; 80053; 83735; 85025; 87637; 93005; 96365; 99284; J3475

== ENCOUNTER 2024-07-14 15:21 | Emergency (ER) | payer MEDICARE, SELFPAY ==
--- NOTE | ~2024-07-14 | XR_ITS ---
XR chest 1V portable Ordering provider: Helen Long PA-C History: 89 years Male with . dyspnea, altered mental status . Comparison: July 17, 2023 FINDINGS: MEDIASTINUM: The cardiac silhouette is slightly enlarged. Congestive andi. LUNGS: No effusions or pneumothorax. Opacification the left mid and lower zone is seen suggestive of pneumonia. OTHER: No free air under the diaphragm. Degenerative changes of the spine. IMPRESSION: Pneumonia in the left mid and lower zone. Follow-up advised. Reviewed, dictated and finalized at location A.
[2024-07-14 15:50] VITALS: BP 134/81; PULSE 70; RESP 20; TEMP 36.6; O2SAT 100
--- OUTSIDE RECORDS SUMMARY | 2024-07-14 16:40 | XMS_ITS | Encounter Summary ---
Author Organization [facility] Address [facility] [place] [address] Care Team Providers Care Paste Mixer Liquid Name Role Phone Zain Ratliff MD Primary Care Provider [phone] Encounter Details Date Type Department Care Team (Late st Contact Info) Description 08/31/2022 [employer] Message Enc [facility] Family & Internal Medicine [facility] [id number] [place] [address] [place] [id number] [place] [address] Medication increase Social History Tobacco Use Types Packs/Day Years Used Date Smoking Tobacco: Former Cigarettes Smokeless Tobacco: Never Alcohol Use Standard Drinks/Week Comments No 0 (1 standard drink = 0.6 oz pur e alcohol) AUDIT-C Answer Date Recorded Frequency of Alcohol Consumption Never 02/26/2018 Average Number of Drinks Not on file 018 Frequency of Binge Drinking Not on file 11/2017 PHQ-2 Answer Date Recorded PHQ-2 Score - If the patient scores above 3, please move on to questions 3-9 0 08/23/2021 Sex and Gender Information Value Date Recorded Sex Assigned at Not on file Legal Sex Male 6:34 PM CDT Gender Identity Not on file Sexual Orientation Not on file documented as of this encounter Plan of Treatment Not on file documented as of this encounter Visit Diagnoses Not on filedocumented in this encounter Care Teams Paste Mixer Liquid Relationship Specialty [place] [address] [place] [address] PCP - General FAMILY PRACTICE 01/28/18 documented as of this encounter
--- OUTSIDE RECORDS SUMMARY | 2024-07-14 16:40 | XMS_ITS | CONTINUITY OF CARE DOCUMENT ---
Author Name irina arevalo Address Unknown Organization [facility] Address [address] [place] [address] Phone [phone] Care Team Providers Care Vmware Architect Name Role Phone John Cooper MD Unavailable John Cooper MD Unavailable [phone] INSURANCE PROVIDERS Payer name Policy type / Coverage type [place] red green party ID AETNA MEDICARE GOLD ADVANTAGE HMO Medicare [id number]
--- OUTSIDE RECORDS SUMMARY | 2024-07-14 16:40 | XMS_ITS | Encounter Summary ---
Author Organization [facility] Address [facility] [place] [address] Care Team Providers Care Wound Specialist Name Role Phone Zain Ratliff MD Primary Care Provider Encounter Details Date Type Department Care Team (Late st Contact Info) Description 03/24/2023 Skills Matter Message Enc [facility] Family & Internal Medicine [address] [address] [place], [facility] Provider Due for follow up appt Social History Tobacco Use Types Packs/Day Years Used Date Smoking Tobacco: Former Cigarettes Smokeless Tobacco: Never Alcohol Use Standard Drinks/Week Comments No 0 (1 standard drink = 0.6 oz pur e alcohol) AUDIT-C Answer Date Recorded Frequency of Alcohol Consumption Never 02/26/2018 Average Number of Drinks Not on file 018 Frequency of Binge Drinking Not on file 11/2017 PHQ-2 Answer Date Recorded Patient Health Questionnaire-2 Score 0 10/01/2022 Sex and Gender Information Value Date Recorded Sex Assigned at Not on file Legal Sex Male 6:34 PM CDT Gender Identity Not on file Sexual Orientation Not on file documented as of this encounter Plan of Treatment Not on file documented as of this encounter Visit Diagnoses Not on filedocumented in this encounter Care Teams Wound Specialist Relationship Specialty [place] [address] [place] [address] PCP - General FAMILY PRACTICE 01/28/18 documented as of this encounter
--- OUTSIDE RECORDS SUMMARY | 2024-07-14 16:40 | XMS_ITS | Encounter Summary ---
Author Organization [facility] Address [facility] [place] [address] Care Team Providers Care Steamer Operator Name Role Phone Zain Ratliff MD Primary Care Provider [phone] Encounter Details Date Type Department Care Team (Late st Contact Info) Description 06/07/[address] [employer] [address] [facility] [address] [place] [address] [place] [address] [place], [place] [id number] RE: Question Social History Tobacco Use Types Packs/Day Years [...] 11/2017 PHQ-2 Answer Date Recorded PHQ-2 Score 0 09/24/2019 Sex and Gender Information Value Date Recorded Sex Assigned at Not on file Legal Sex Male 6:34 PM CDT Gender Identity Not on file Sexual Orientation Not on file documented as of this encounter Plan of Treatment Not on file documented as of this encounter Visit Diagnoses Not on filedocumented in this encounter Care Teams Steamer Operator Relationship Specialty [place] [address] [place] [address] PCP - General FAMILY PRACTICE 01/28/18 documented as of this encounter
--- OUTSIDE RECORDS SUMMARY | 2024-07-14 16:40 | XMS_ITS | Continuity of Care Document ---
Author Organization [facility] Address [address] [place] [address] Phone Care Team Providers Care Rubber Mixer Name Role Phone Conversion MD, Doctor Unavailable Unavailabl e Medications Medication Instructions Dosage Effective Dates (start - stop) Status Comments MICRO-K 10 MEQ EXTENCAPS 1 QD - Active LIPITOR 10MG TABS 1 QPM - Active COZAAR 50MG TABS 1 DAILY - Active MECLIZINE 12.5MG TABLET 1 BID - Ac tive TRIAMTERENE W/HCTZ 37.5-25MG T 1 QAM - Active GEMFIBROZIL 600MG TABS 1 QAM - No Longer Active MICRO-K 10MEQ EXTENCAPS 3 QD - No Longer Active MICRO-K 10MEQ EXTENCAPS 3 QD - No Longer Active CHLORTHALIDONE 50MG TABLET 1 QD - No Longer Active MICRO-K 10MEQ EXTENCAPS 3 QD - No Longer Active MAGNESIUM DR 64MG TABS 1 QD - No Longer Active MECLIZINE HCL 12.5MG TABS 1 BID - No Longer Active MICRO-K 10 10MEQ CAPS 1 BID - No Longer Active CHLORTHALIDONE 50MG TABS 1 QD - No Longer Active Advance Directives Directive Yes / No Effective Date File Name No Information Encounters Encounter Description Practice Location Reason(s) For Visit Diagnoses Date Provider Providers Copied on Encounter [facility], [address], [place], [place], [address] , [place] tel: [phone] Conversion Department No Information 6201 1 Conversion Doctor. [address], [place], [address], [place]. [facility], [address], [place], [place], [address] , [place] tel: [phone] [facility] COUGHHYPERLIPIDEM IA NEC/NOSBENIGN HYPERTENSION [address] Pat[address]pin. [address], [place], [place], [address]. tel: [phone] [facility], [address], [place], [place], [address] , [place] tel: [phone] [facility] SCREEN MAL NEOP-RECTUM 0200 3 Patiño Crispin. [address] , [address], [place], [place], [address]. tel: [phone] [facility], [address], [place], [place], [address] , [place] tel: [phone] [facility] SCRN MALIG NEOP-PROSTATEMIXE D HYPERLIPIDEMIALON G-TERM USE MEDS NEC 9[address] 3 Patiño Crispin. [address], [place], [place], [address]. tel: [phone] [facility], [address], [place], [place], [address] , [place] tel: [phone] [facility] DIZZINESS AND GIDDINESSVACCINAT ION FOR TD-DTND VAC STRPTCS PNEUMNI B 6-200 3 Patiño Crispin. [address], [place], [place], [address]. tel: [phone] [facility], [address], [place], [place], [address] , [place] tel: [phone] [facility] SCREEN MAL NEOP OTH SITE 5-200 2 Patiño Crispin. [address], [place], [place], [address]. tel:[phone] [employer], [address], [place], [place], [address] , tel: [phone] [facility] SCREEN-DIABETES MELLITUSABNORMAL GLUCOSE Yonny-0 1-200 2 Patiño Crispin. [address] , [address], [place], [place], [address]. tel:[phone] [employer], [address], [place], [place], [address] , tel: [phone] [facility] NAUSEA ALONE 4-200 1 Conversion Doctor. [address] [place], [address], . [employer], [address], [place], [place], [address] , tel: [phone] [facility] DVRTCLI COLON W/O HMRHG [phone] 0 Patiño Crispin. [address] , [address], [place], [place], [address]. tel:[phone] Family History Family Member Type Diagnosis Age At Onset No Information Immunizations Vaccine Date Status Comments 96403 - TD administered Source: Source Unspecified 22351 - Pneumococcal_PPV23 administered S ource: Source Unspecified Payers Payer name Insurance type Covered libertarian ID Authoriza tion(s) No Information Social History Type Description Quantity Date Captured Comments Sex Male Smoking Status No Information Chief Complaint And Reason For Visit No Information Reason For Referral Reason For Referral No Information History Of Present Illness Encounter Date Complaint History Of Prese nt Illness No Information Functional Status Date Functional Assessmen t No Information Instructions Date Instruction Additional Infor mation No Information Assessments Type Assessment Date No Information Patient Care Teams Name Effective Dates (start - stop) Status Members No Information
--- OUTSIDE RECORDS SUMMARY | 2024-07-14 16:40 | XMS_ITS | Clinical Summary ---
Author Organization [facility] Address [address] [place] [address] Care Team Providers Care Drum Straightener Name Role Phone Unavailable Primary Care Provider Unavailabl e Social History Tobacco Use Types Packs/Day Years Used Date Smoking Tobacco: Never Assessed Sex and Gender Information Value Date Recorded Sex Assigned at Not on file Legal Sex Male 11:51 AM TOUR DIRECTOR Gender Identity Not on file Sexual Orientation Not on file Plan of Treatment Health Maintenance Due Date Last Done Comments Hepatitis C Virus (HCV) Screening 1935 TdaP Immunization 1935 Pneumococcal Immunization (5 0+ years) (1 of 1 - PCV) 1985 Zoster Immunization (1 of 2) 1985 Respiratory Syncytial Virus (RSV) Immunization (Adult) (1 - 1-dose 75+ series) 2010 Influenza Immunization (#1) 2023 SARS-COV-2 Immunization ( - 2023- season) 2023 Hepatitis B Immunization Aged Out No longer eligible based on patient's age to complete this topic Meningococcal Immunization (ACWY) Aged Out No longer eligible based on patient's age to complete this topic Rotavirus Immunization Aged Out No lo nger eligible based on patient's age to complete this topic
--- OUTSIDE RECORDS SUMMARY | 2024-07-14 16:40 | XMS_ITS | Encounter Summary ---
Author Organization [facility] Address [facility] [place] [address] Care Team Providers Care Pastry Cook Name Role Phone Zain Ratliff MD Primary Care Provider [phone] Encounter Details Date Type Department Care Team (Late st Contact Info) Description 10/10/2022 Lookbackt Message Enc [facility] Family & Internal Medicine [facility] [address] [place] [address] [place] [address] [place] [phone] Devon's agitation Social History Tobacco Use Types Packs/Day Years [...] on file Sexual Orientation Not on file COVID-19 Exposure Response Date Recorded In the last 10 days, have yo u been in contact with someone who was confirmed or suspected to have Coronavirus/COVID-19? No / Unsure 10/01/2022 7:06 AM CDT documented as of this encounter Plan of Treatment Not on file documented as of this encounter Visit Diagnoses Not on filedocumented in this encounter Care Teams Pastry Cook Relationship Specialty [place] [address] [place] [address] PCP - General FAMILY PRACTICE 01/28/18 documented as of this encounter
--- OUTSIDE RECORDS SUMMARY | 2024-07-14 16:40 | XMS_ITS | Clinical Summary ---
Author Organization [facility] Address [facility] [place] [address] Care Team Providers Care Dairy Chemist Name Role Phone Zain Ratliff MD Primary Care Provider Allergies No known active allergies Medications finasteride 5 MG tablet Take 1 tablet (5 mg total) by mouth daily. 09/20/19 17 Active terazosin 5 MG capsule Take 1 capsule (5 mg total) by mouth nightly. 09/20/19 17 Active TRIAMTERENE-HYDROC HLOROTHIAZIDE 37.5-25 MG tabletIndications: HTN (hypertension), benign TAKE 1 TABLET BY MOUTH ONCE DAILY 90 tablet 1 09/26/19 19 Active Additional Information Patient not taking.Reported on 10/01/2022 ibuprofen 200 MG tablet Take 2 tablets (400 mg total) by mouth. Active Multiple Vitamin (MULTIVITAMIN) capsule Take 1 capsule by mouth daily. Active phenazopyridine 100 MG tablet Take 1 tablet (100 mg total) by mouth. 05/22/19 21 Active meclizine (ANTIVERT) 25 MG tabletIndications: Vertigo Take 2 tablets by mouth once daily 180 tablet 1 04/02/20 22 Active donepezil (ARICEPT) 5 MG TabIndications:Dem entia without behavioral disturbance (CMS/HCC) Take 1 tablet by mouth daily along with 10mg tablet for total daily dose of 15mg. 90 tablet 1 09/03/19 23 Active donepezil (ARICEPT) 10 MG TabIndications:Dem entia without behavioral disturbance (CMS/HCC) Take 1 tablet (10 mg total) by mouth nightly at bedtime. at bedtime 90 tablet 10/02/19 23 Active QUEtiapine (SEROQUEL) 25 MG tabletIndications: Anxiety,Agitation Take 1 tablet (25 mg total) by mouth nightly at bedtime. 90 tablet 10/11/19 23 Active losartan (COZAAR) 25 MG tabletIndications: HTN (hypertension), benign Take 1 tablet by mouth once daily 90 tablet 1 11/06/19 23 Active fenofibrate (TRICOR) 145 MG tabletIndications: Mixed hyperlipidemia Take 1 tablet by mouth once daily 90 tablet 03/24/20 23 Active LORazepam (ATIVAN) 0.5 MG tabletIndications: Anxiety Take 1 tablet (0.5 mg total) by mouth 2 (two) times daily as needed for Anxiety. 28 tablet 05/10/19 24 Active Active Problems Problem Noted Date Diagnosed Date Malignant neoplasm of urinary bladder (CMS/HCC H HS/HCC) 05/03/2020 Overview (03/28/2022): Added automatically from request for surgery [id number] Mixed hyperlipidemia 08/28/2018 Memory deficits 01/14/2018 Wears hearing aid in left ear 08/28/2017 Acid reflux 09/19/2016 Benign prostatic hyperplasia 09/19/2016 Dizziness 09/19/2016 HTN (hypertension) 09/19/2016 Meniere's disease 09/19/2016 Overview (02/26/2018): Description: Resolved Problems Problem Noted Date Diagnosed Date Resolved Date Memory change 12/16/2017 03/28/2022 Immunizations Name Administration Dates Next Due Fluad influenza vaccine, Patrice drivalent (aIIV4), Inactivated, adjuvanted, preservative free, 0.5 mL,IM use 02/22/2023,02/07/2021 Flucelvax 6 Months+ (Prefill ed Syringe) 01/26/2019 Fluzone High Dose - >Age 65 (Prefilled Syringe) 02/03/2022,12/29/2019,02/03/2018,2014 Influenza Adult (Generic) 02/07/2021,01/26/2019, 01/21/2018 PFIZER COVID-19 (ORIGINAL FORMULATION, PURPLE CAP) mRNA, LNP-S, PF, 30 MCG/0.3 ML DOSE 04/24/2021,07/06/2020,06/15/2020 Pneumococcal (Pneumovax 23) 01/26/2019 Pneumococcal (Prevnar 13) 02/21/2015 Family History Medical History Relation Comments Cardiac disorder Brother Hypertension Brother Seizures Brother Alzheimer's Disease Mother Brain Tumor Sister Relation Status Comments Brother Father Mother Sister Social History Tobacco Use Types Packs/Day Years Used Date Smoking Tobacco: Former Cigarettes Smokeless Tobacco: Never Tobacco Cessation:Counseling Given: No Alcohol Use Standard Drinks/Week Comments No 0 [...] on file Sexual Orientation Not on file Last Filed Vital Signs Vital Sign Reading Time Taken Comments Blood Pressure 132/74 05/09/2023 11:37 AM STRATEGY PLANNING CONSULTANT Pulse 70 05/09/2023 11:37 AM STRATEGY PLANNING CONSULTANT Temperature 36.8 C (98.3 F) 05/09/2023 11:37 AM STRATEGY PLANNING CONSULTANT Respiratory Rate 16 05/09/2023 11:37 AM STRATEGY PLANNING CONSULTANT Oxygen Saturation 99% 05/09/2023 11:37 AM STRATEGY PLANNING CONSULTANT Inhaled Oxygen Concentration - - Weight 101.2 kg (223 lb) 05/09/2023 11:37 AM STRATEGY PLANNING CONSULTANT Height 172.7 cm (5' 8 ) 05/09/2023 11:37 AM STRATEGY PLANNING CONSULTANT Body Mass Index 33.91 05/09/2023 11:37 AM STRATEGY PLANNING CONSULTANT Plan of Treatment Health Maintenance Due Date Last Done Comments DTaP, Tdap and Td Vaccines (1 - Tdap) 1954 Zoster Vaccines (1 of 2) 1985 Annual Medicare Wellness Visit 2000 RSV Immunization or 60+ Years (1 - 1-dose 75+ series) 2010 COVID-19 Vaccine (6 - season) 2023 01/23/2023, 02/24/2022, 04/24/2021, Additional history exists Influenza Adult (#1) 2024 02/22/2023, 02/03/2022, 02/07/2021, Additional history exists PHQ-2 (Physician [place]) 04/21/2024 10/01/2022 Pneumococcal Vaccine: 65+ Years Completed 01/26/2019, 02/21/2015 Meningococcal B Vaccine Aged Out No l onger eligible based on patient's age to complete this topic Meningococcal Vaccine Aged Out No tatyana lenka eligible based on patient's age to complete this topic RSV Immunizations Under 20 Months Aged Out No longer eligible based on patient's age to complete this topic Insurance AETNA Care Teams Dairy Chemist Relationship Specialty [place] [address] [place] [address] PCP - General FAMILY PRACTICE 01/28/18
--- NOTE | 2024-07-14 18:29 | ECG_ITS ---
Test Date: 2024-07-14 18:33:35 Measurements Intervals Jackson Rate: 63 P: 69 NV: 234 QRS: 112 QRSD: 107 T: 62 QT: 418 QTc: 429 Interpretive Statements SINUS RHYTHM WITH FIRST DEGREE AV BLOCK POSSIBLE RIGHT VENTRICULAR HYPERTROPHY [SOME/ALL OF: PROMINENT R IN V1, LATE TRANSITION, RAD, DONTE, SSS] No previous ECG available for comparison Electronically Signed On 07-15-2024 10:49:51 CDT by Eric Floyd M.D.
[2024-07-14 18:38] VITALS: O2SAT 93
[2024-07-14 18:39] VITALS: PULSE 69
[2024-07-14 18:41] VITALS: BP 182/87; PULSE 65; RESP 28; O2SAT 100
--- NOTE | 2024-07-14 18:49 | ED_ITS ---
HPI - SOB/Dyspnea General Chief Complaint: Shortness of Breath/Dyspnea Stated Complaint: Shortness of breath, poss UTI, more altered Time Seen by Provider: 07/14/24 18:11 History of Present Illness HPI Narrative: 89-year-old male with history of CKD, BPH, hypertension, dementia presents to the ED from [facility] with daughter/guardian, Yessica, at bedside for increased agitation, concerns for UTI and shortness of breath. Patient's daughter at bedside provides history. States the patient was having increased work of breathing and exertional dyspnea earlier this month. Outpatient x-ray was performed which showed no evidence of pneumonia. The patient states been doing better without intervention until a few days ago. She states that she has noted he has had foul-smelling urine is concerning he may have a UTI. He has also been increasingly more agitated, more notably since he arrived to the emergency department. The patient denies chest pain, abdominal pain, fever, cough, congestion, dysuria, N/V/D, rash. He is anxious appearing and states he feels ?horrible?. When I asked him to elaborate on this he is unable to. Daughter denies history of CHF, COPD, asthma. Patient's daughter at bedside notes he is at his normal mental status other than increased agitation. Related Data Home Medications ?Medication ?Instructions ?Recorded ?Confirmed ?Last Taken ?Type donepezil 10 mg tablet 10 mg PO QHS 07/03/23 07/03/23 Unknown History donepezil 5 mg tablet 5 mg PO QHS 07/03/23 07/03/23 Unknown History finasteride 5 mg tablet 5 mg PO DAILY 07/03/23 07/03/23 Unknown History lorazepam 0.5 mg tablet 0.5 mg PO BID PRN 07/03/23 07/03/23 Unknown History anxiety/restlessness losartan 25 mg tablet 25 mg PO DAILY 07/03/23 07/03/23 Unknown History meclizine 25 mg tablet 25 mg PO Q8H PRN Dizziness Or 07/03/23 07/03/23 Unknown History Vertigo [id number] 300 mcg-K 60 1 tablet PO QAM 07/03/23 07/03/23 Unknown History mcg-lycop 600 mcg-lutein 300 mcg tablet (Centrum Silver Ultra Men's) terazosin 5 mg capsule 5 mg PO DAILY 07/03/23 07/03/23 Unknown History Allergies Allergy/AdvReac Type Severity Reaction Status Date / Time No Known Allergies Allergy Verified 07/14/24 18:33 Review of Systems 2 Review of Systems: All systems reviewed & are unremarkable except as noted in HPI and below PMFSH Past Medical History Medical History Meniere's disease, unspecified ear Unspecified dementia, unspecified severity, without behavioral disturbance, psychotic disturbance, mood disturbance, and anxiety BPH (benign prostatic hyperplasia) CKD (chronic kidney disease) Degenerative joint disease Hx of bladder cancer 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 He quit smoking in 2019. No alcohol or drug use. Code status - DNR Smoking status: Former smoker Second hand tobacco smoke exposure: No Alcohol intake: current Substance use: never Spiritual care concerns: No Exam 2 Narrative: GENERAL: Anxious-appearing, well-nourished, and in no acute distress. Agitated HEAD: Normocephalic, atraumatic. EYES: PERRLA and EOMI. ENT: Nares clear, no rhinorrhea or epistaxis. Mucous membranes moist. NECK: Supple. CHEST: Clear to auscultation. Tachypneic. No wheezing, rales, rhonchi or stridor HEART: Regular rate and rhythm. No murmur heard. Normal peripheral pulses. ABDOMEN: Soft, nontender, nondistended, normal active bowel sounds. EXTREMITIES: Normal range of motion. No edema. SKIN: Warm, dry, no rash. NEURO: No focal deficits. Alert and oriented x3 Course Vital Signs Vital signs: Vital Signs Temperature 98 F 07/14/24 15:50 Pulse Rate 70 07/14/24 15:50 Respiratory Rate 20 07/14/24 15:50 Blood Pressure 134/81 07/14/24 15:50 Pulse Oximetry 100 07/14/24 15:50 Oxygen Delivery Room Air 07/14/24 15:50 Temperature 98.1 F 07/14/24 21:14 Pulse Rate 70 07/14/24 21:14 Respiratory Rate 22 H 07/14/24 21:14 Blood Pressure 126/57 L 07/14/24 21:14 Pulse Oximetry 97 07/14/24 21:14 Oxygen Delivery Room Air 07/14/24 18:38 MDM - SOB/Dyspnea MDM Narrative Medical decision making narrative: 89-year-old male with history of CKD, hypertension, BPH, dementia presents to the ED from [facility] with daughter/guardian at bedside for increased agitation, malodorous urine and dyspnea. See HPI for further history. On exam patient is tachypneic and anxious appearing. He is agitated and A&O times 2-3 which is reportedly his baseline. His only complaints are feeling ?horrible? but he is unable to elaborate. Lung sounds are clear, he does not appear to be volume overloaded. Abdomen is soft and nontender. I discussed goals of care with daughter at bedside. She advises that the patient is DNR/DNI. I discussed AMS workup including a CT brain given his increased agitation, however she politely declines obtaining a CT brain. She notes he has not had any trauma and she does not wish to investigate for possible intracranial bleed as they do not desire any form of treatment for this. Will obtain lab work, chest x-ray, UA, EKG and provide Ativan and re-evaluate. Workup shows leukocytosis of 12, no bandemia. Chest x-ray reveals pneumonia in the left mid and lower lung zone. ABG shows respiratory alkalosis consistent with patient's hyperventilation on exam. He was given Ativan to assist with this as he does appear very anxious. Chemistries reveals baseline CKD with a creatinine of 1.64, BUN of 28. No electrolyte derangements. BNP within normal limits when age adjusted. EKG shows sinus rhythm first-degree AV block, normal axis, normal QRS duration, normal QTC, no ischemic changes. Troponin is undetectable. Lactic acid mildly elevated 2.6, patient was given a L fluids and repeat lactic normal at 1.2. Patient and family at bedside updated on results. Unfortunately patient remained agitated, expressed desire to leave. He was given another dose of IV Ativan to assist with anxiety and is now resting comfortably in exam bed, is pleasant and cooperative. Tachypnea has resolved. He was started on Rocephin and azithromycin for CAP. I was planning to admit the patient for observation given age and tachypnea upon arrival and Curb-65 score of 2, however family at bedside voices concerns as they believe patient will continue to be combative if admitted to the hospital. I had a long discussion with family regarding disposition. Ultimately given patient has remarkably improved, vital signs are now stable (repeat respiratory rate on my count is now 20 breaths per minute) and he has not required supplemental O2, they are wishing to take him back to his [facility] care facility for outpatient antibiotics. I advised close follow-up with his PCP and discussed return precautions. They are agreeable with the plan verbalized understanding. [facility] Lab Data 07/14/24 18:54 07/14/24 18:54 Labs: Lab Results 07/14/24 07/14/24 07/14/24 Range/Units 18:54 18:54 18:54 WBC 12.0 H (4.5-10.0) K/mm3 RBC 4.30 L (4.6-6.20) M/mm3 Hgb 13.4 L (14.0-18.0) g/dL Hct 39.9 L (42.0-52.0) % MCV 92.8 (80-100) fl MCH 31.2 (26-34) pg MCHC 33.6 (32-36) g/dl RDW 13.0 (11.5-14.5) % Plt Count 226 (150-375) k/mm3 MPV 10.5 H (7.4-10.4) fl Immature Gran % (Auto) 0.6 H (0-0.5) % Neut % (Auto) 48.0 (45.5-73.1) % Lymph % (Auto) 35.4 (18.3-44.2) % [place] % (Auto) 13.1 H (2.6-8.5) % Eos % (Auto) 2.3 (0-4.4) % Baso % (Auto) 0.6 (0.2-1.2) % Lymph # (Auto) 4.25 H (0.9-3.2) K/mm3 [place] # (Auto) 1.6 H (0.1-0.6) K/mm3 Eos # (Auto) 0.3 (0-0.3) K/mm3 Baso # (Auto) 0.1 (0.0-0.1) K/mm3 Abs Immat Gran (auto) 0.07 H (0.00-0.031) K/mm3 Absolute Neuts (auto) 5.8 (1.3-6.7) K/mm3 Absolute Nucleated RBC 0.000 (0.0-0.012) K/mm3 Nucleated RBC % 0.0 (0.0-0.2) % PT 14.1 (11.1-14.7) Seconds INR 1.0 APTT 35.4 (22.3-36.8) Seconds Sodium Cancelled 136 L Potassium Cancelled 4.2 Chloride Cancelled Carbon Dioxide Anion Gap BUN Creatinine Estim Creat Clear Calc Estimated GFR Glucose Lactic Acid (0.7-2.0) mmol/L Calcium Magnesium (1.6-2.3) mg/dL Total Bilirubin AST ALT Alkaline Phosphatase Troponin I (0.000-0.034) ng/mL NT-Pro-B Natriuret Pep (19.9-100) pg/mL Total Protein Albumin Urine Color (Yellow) Urine Appearance (Clear) Urine pH (5.0-9.0) Ur Specific [place] (1.001-1.035) Urine Protein (Negative) mg/dL Urine Glucose (UA) (Negative) mg/dL Urine Ketones (Negative) mg/dL Ur Blood (Man) (Negative) Urine Nitrate (Negative) Urine Bilirubin (Negative) Urine Urobilinogen (<2.0) mg/dL Leukocyte Esterase Rfl (Negative) LAURA/UL Urine RBC (0-2) /hpf Urine WBC (0-3) /hpf Ur Squamous Epith Cells (Few) /hpf Urine Bacteria /hpf Urine Casts Influenza A (RT-PCR) (Negative) Influenza B (RT-PCR) (Negative) RSV (RT-PCR) (Negative) SARS-CoV-2 RNA (RT-PCR) (Negative) 07/14/24 07/14/24 07/14/24 Range/Units 18:54 18:54 18:54 WBC (4.5-10.0) K/mm3 RBC (4.6-6.20) M/mm3 Hgb (14.0-18.0) g/dL Hct (42.0-52.0) % MCV (80-100) fl MCH (26-34) pg MCHC (32-36) g/dl RDW (11.5-14.5) % Plt Count (150-375) k/mm3 MPV (7.4-10.4) fl Immature Gran % (Auto) (0-0.5) % Neut % (Auto) (45.5-73.1) % Lymph % (Auto) (18.3-44.2) % [place] % (Auto) (2.6-8.5) % Eos % (Auto) (0-4.4) % Baso % (Auto) (0.2-1.2) % Lymph # (Auto) (0.9-3.2) K/mm3 [place] # (Auto) (0.1-0.6) K/mm3 Eos # (Auto) (0-0.3) K/mm3 Baso # (Auto) (0.0-0.1) K/mm3 Abs Immat Gran (auto) (0.00-0.031) K/mm3 Absolute Neuts (auto) (1.3-6.7) K/mm3 Absolute Nucleated RBC (0.0-0.012) K/mm3 Nucleated RBC % (0.0-0.2) % PT (11.1-14.7) Seconds INR APTT (22.3-36.8) Seconds Sodium Potassium Chloride 101 Carbon Dioxide Cancelled 25 Anion Gap Cancelled 10 BUN Cancelled Creatinine Estim Creat Clear Calc Estimated GFR Glucose Lactic Acid (0.7-2.0) mmol/L Calcium Magnesium (1.6-2.3) mg/dL Total Bilirubin AST ALT Alkaline Phosphatase Troponin I (0.000-0.034) ng/mL NT-Pro-B Natriuret Pep (19.9-100) pg/mL Total Protein Albumin Urine Color (Yellow) Urine Appearance (Clear) Urine pH (5.0-9.0) Ur Specific [place] (1.001-1.035) Urine Protein (Negative) mg/dL Urine Glucose (UA) (Negative) mg/dL Urine Ketones (Negative) mg/dL Ur Blood (Man) (Negative) Urine Nitrate (Negative) Urine Bilirubin (Negative) Urine Urobilinogen (<2.0) mg/dL Leukocyte Esterase Rfl (Negative) LAURA/UL Urine RBC (0-2) /hpf Urine WBC (0-3) /hpf Ur Squamous Epith Cells (Few) /hpf Urine Bacteria /hpf Urine Casts Influenza A (RT-PCR) (Negative) Influenza B (RT-PCR) (Negative) RSV (RT-PCR) (Negative) SARS-CoV-2 RNA (RT-PCR) (Negative) 07/14/24 07/14/24 07/14/24 Range/Units 18:54 18:54 18:54 WBC (4.5-10.0) K/mm3 RBC (4.6-6.20) M/mm3 Hgb (14.0-18.0) g/dL Hct (42.0-52.0) % MCV (80-100) fl MCH (26-34) pg MCHC (32-36) g/dl RDW (11.5-14.5) % Plt Count (150-375) k/mm3 MPV (7.4-10.4) fl Immature Gran % (Auto) (0-0.5) % Neut % (Auto) (45.5-73.1) % Lymph % (Auto) (18.3-44.2) % [place] % (Auto) (2.6-8.5) % Eos % (Auto) (0-4.4) % Baso % (Auto) (0.2-1.2) % Lymph # (Auto) (0.9-3.2) K/mm3 [place] # (Auto) (0.1-0.6) K/mm3 Eos # (Auto) (0-0.3) K/mm3 Baso # (Auto) (0.0-0.1) K/mm3 Abs Immat Gran (auto) (0.00-0.031) K/mm3 Absolute Neuts (auto) (1.3-6.7) K/mm3 Absolute Nucleated RBC (0.0-0.012) K/mm3 Nucleated RBC % (0.0-0.2) % PT (11.1-14.7) Seconds INR APTT (22.3-36.8) Seconds Sodium Potassium Chloride Carbon Dioxide Anion Gap BUN 28 H Creatinine Cancelled 1.64 H Estim Creat Clear Calc Cancelled 31 Estimated GFR Cancelled Glucose Lactic Acid (0.7-2.0) mmol/L Calcium Magnesium (1.6-2.3) mg/dL Total Bilirubin AST ALT Alkaline Phosphatase Troponin I (0.000-0.034) ng/mL NT-Pro-B Natriuret Pep (19.9-100) pg/mL Total Protein Albumin Urine Color (Yellow) Urine Appearance (Clear) Urine pH (5.0-9.0) Ur Specific [place] (1.001-1.035) Urine Protein (Negative) mg/dL Urine Glucose (UA) (Negative) mg/dL Urine Ketones (Negative) mg/dL Ur Blood (Man) (Negative) Urine Nitrate (Negative) Urine Bilirubin (Negative) Urine Urobilinogen (<2.0) mg/dL Leukocyte Esterase Rfl (Negative) LAURA/UL Urine RBC (0-2) /hpf Urine WBC (0-3) /hpf Ur Squamous Epith Cells (Few) /hpf Urine Bacteria /hpf Urine Casts Influenza A (RT-PCR) (Negative) Influenza B (RT-PCR) (Negative) RSV (RT-PCR) (Negative) SARS-CoV-2 RNA (RT-PCR) (Negative) 07/14/24 07/14/24 07/14/24 Range/Units 18:54 18:54 18:54 WBC (4.5-10.0) K/mm3 RBC (4.6-6.20) M/mm3 Hgb (14.0-18.0) g/dL Hct (42.0-52.0) % MCV (80-100) fl MCH (26-34) pg MCHC (32-36) g/dl RDW (11.5-14.5) % Plt Count (150-375) k/mm3 MPV (7.4-10.4) fl Immature Gran % (Auto) (0-0.5) % Neut % (Auto) (45.5-73.1) % Lymph % (Auto) (18.3-44.2) % [place] % (Auto) (2.6-8.5) % Eos % (Auto) (0-4.4) % Baso % (Auto) (0.2-1.2) % Lymph # (Auto) (0.9-3.2) K/mm3 [place] # (Auto) (0.1-0.6) K/mm3 Eos # (Auto) (0-0.3) K/mm3 Baso # (Auto) (0.0-0.1) K/mm3 Abs Immat Gran (auto) (0.00-0.031) K/mm3 Absolute Neuts (auto) (1.3-6.7) K/mm3 Absolute Nucleated RBC (0.0-0.012) K/mm3 Nucleated RBC % (0.0-0.2) % PT (11.1-14.7) Seconds INR APTT (22.3-36.8) Seconds Sodium Potassium Chloride Carbon Dioxide Anion Gap BUN Creatinine Estim Creat Clear Calc Estimated GFR 40 L Glucose Cancelled 111 H Lactic Acid (0.7-2.0) mmol/L Calcium Cancelled 10.1 Magnesium 1.7 (1.6-2.3) mg/dL Total Bilirubin Cancelled AST ALT Alkaline Phosphatase Troponin I (0.000-0.034) ng/mL NT-Pro-B Natriuret Pep (19.9-100) pg/mL Total Protein Albumin Urine Color (Yellow) Urine Appearance (Clear) Urine pH (5.0-9.0) Ur Specific [place] (1.001-1.035) Urine Protein (Negative) mg/dL Urine Glucose (UA) (Negative) mg/dL Urine Ketones (Negative) mg/dL Ur Blood (Man) (Negative) Urine Nitrate (Negative) Urine Bilirubin (Negative) Urine Urobilinogen (<2.0) mg/dL Leukocyte Esterase Rfl (Negative) LAURA/UL Urine RBC (0-2) /hpf Urine WBC (0-3) /hpf Ur Squamous Epith Cells (Few) /hpf Urine Bacteria /hpf Urine Casts Influenza A (RT-PCR) (Negative) Influenza B (RT-PCR) (Negative) RSV (RT-PCR) (Negative) SARS-CoV-2 RNA (RT-PCR) (Negative) 07/14/24 07/14/24 07/14/24 Range/Units 18:54 18:54 18:54 WBC (4.5-10.0) K/mm3 RBC (4.6-6.20) M/mm3 Hgb (14.0-18.0) g/dL Hct (42.0-52.0) % MCV (80-100) fl MCH (26-34) pg MCHC (32-36) g/dl RDW (11.5-14.5) % Plt Count (150-375) k/mm3 MPV (7.4-10.4) fl Immature Gran % (Auto) (0-0.5) % Neut % (Auto) (45.5-73.1) % Lymph % (Auto) (18.3-44.2) % [place] % (Auto) (2.6-8.5) % Eos % (Auto) (0-4.4) % Baso % (Auto) (0.2-1.2) % Lymph # (Auto) (0.9-3.2) K/mm3 [place] # (Auto) (0.1-0.6) K/mm3 Eos # (Auto) (0-0.3) K/mm3 Baso # (Auto) (0.0-0.1) K/mm3 Abs Immat Gran (auto) (0.00-0.031) K/mm3 Absolute Neuts (auto) (1.3-6.7) K/mm3 Absolute Nucleated RBC (0.0-0.012) K/mm3 Nucleated RBC % (0.0-0.2) % PT (11.1-14.7) Seconds INR APTT (22.3-36.8) Seconds Sodium Potassium Chloride Carbon Dioxide Anion Gap BUN Creatinine Estim Creat Clear Calc Estimated GFR Glucose Lactic Acid (0.7-2.0) mmol/L Calcium Magnesium (1.6-2.3) mg/dL Total Bilirubin 0.2 AST Cancelled 26 ALT Cancelled 21 Alkaline Phosphatase Cancelled Troponin I (0.000-0.034) ng/mL NT-Pro-B Natriuret Pep (19.9-100) pg/mL Total Protein Albumin Urine Color (Yellow) Urine Appearance (Clear) Urine pH (5.0-9.0) Ur Specific [place] (1.001-1.035) Urine Protein (Negative) mg/dL Urine Glucose (UA) (Negative) mg/dL Urine Ketones (Negative) mg/dL Ur Blood (Man) (Negative) Urine Nitrate (Negative) Urine Bilirubin (Negative) Urine Urobilinogen (<2.0) mg/dL Leukocyte Esterase Rfl (Negative) LAURA/UL Urine RBC (0-2) /hpf Urine WBC (0-3) /hpf Ur Squamous Epith Cells (Few) /hpf Urine Bacteria /hpf Urine Casts Influenza A (RT-PCR) (Negative) Influenza B (RT-PCR) (Negative) RSV (RT-PCR) (Negative) SARS-CoV-2 RNA (RT-PCR) (Negative) 07/14/24 07/14/24 07/14/24 Range/Units 18:54 18:54 18:54 WBC (4.5-10.0) K/mm3 RBC (4.6-6.20) M/mm3 Hgb (14.0-18.0) g/dL Hct (42.0-52.0) % MCV (80-100) fl MCH (26-34) pg MCHC (32-36) g/dl RDW (11.5-14.5) % Plt Count (150-375) k/mm3 MPV (7.4-10.4) fl Immature Gran % (Auto) (0-0.5) % Neut % (Auto) (45.5-73.1) % Lymph % (Auto) (18.3-44.2) % [place] % (Auto) (2.6-8.5) % Eos % (Auto) (0-4.4) % Baso % (Auto) (0.2-1.2) % Lymph # (Auto) (0.9-3.2) K/mm3 [place] # (Auto) (0.1-0.6) K/mm3 Eos # (Auto) (0-0.3) K/mm3 Baso # (Auto) (0.0-0.1) K/mm3 Abs Immat Gran (auto) (0.00-0.031) K/mm3 Absolute Neuts (auto) (1.3-6.7) K/mm3 Absolute Nucleated RBC (0.0-0.012) K/mm3 Nucleated RBC % (0.0-0.2) % PT (11.1-14.7) Seconds INR APTT (22.3-36.8) Seconds Sodium Potassium Chloride Carbon Dioxide Anion Gap BUN Creatinine Estim Creat Clear Calc Estimated GFR Glucose Lactic Acid (0.7-2.0) mmol/L Calcium Magnesium (1.6-2.3) mg/dL Total Bilirubin AST ALT Alkaline Phosphatase 78 Troponin I < 0.012 (0.000-0.034) ng/mL NT-Pro-B Natriuret Pep 391 H (19.9-100) pg/mL Total Protein Cancelled 8.0 Albumin Cancelled 4.6 Urine Color (Yellow) Urine Appearance (Clear) Urine pH (5.0-9.0) Ur Specific [place] (1.001-1.035) Urine Protein (Negative) mg/dL Urine Glucose (UA) (Negative) mg/dL Urine Ketones (Negative) mg/dL Ur Blood (Man) (Negative) Urine Nitrate (Negative) Urine Bilirubin (Negative) Urine Urobilinogen (<2.0) mg/dL Leukocyte Esterase Rfl (Negative) LAURA/UL Urine RBC (0-2) /hpf Urine WBC (0-3) /hpf Ur Squamous Epith Cells (Few) /hpf Urine Bacteria /hpf Urine Casts Influenza A (RT-PCR) Negative (Negative) Influenza B (RT-PCR) Negative (Negative) RSV (RT-PCR) Negative (Negative) SARS-CoV-2 RNA (RT-PCR) Negative (Negative) 07/14/24 07/14/24 07/14/24 Range/Units 19:51 20:26 23:38 WBC (4.5-10.0) K/mm3 RBC (4.6-6.20) M/mm3 Hgb (14.0-18.0) g/dL Hct (42.0-52.0) % MCV (80-100) fl MCH (26-34) pg MCHC (32-36) g/dl RDW (11.5-14.5) % Plt Count (150-375) k/mm3 MPV (7.4-10.4) fl Immature Gran % (Auto) (0-0.5) % Neut % (Auto) (45.5-73.1) % Lymph % (Auto) (18.3-44.2) % [place] % (Auto) (2.6-8.5) % Eos % (Auto) (0-4.4) % Baso % (Auto) (0.2-1.2) % Lymph # (Auto) (0.9-3.2) K/mm3 [place] # (Auto) (0.1-0.6) K/mm3 Eos # (Auto) (0-0.3) K/mm3 Baso # (Auto) (0.0-0.1) K/mm3 Abs Immat Gran (auto) (0.00-0.031) K/mm3 Absolute Neuts (auto) (1.3-6.7) K/mm3 Absolute Nucleated RBC (0.0-0.012) K/mm3 Nucleated RBC % (0.0-0.2) % PT (11.1-14.7) Seconds INR APTT (22.3-36.8) Seconds Sodium Potassium Chloride Carbon Dioxide Anion Gap BUN Creatinine Estim Creat Clear Calc Estimated GFR Glucose Lactic Acid 2.6 H 1.2 (0.7-2.0) mmol/L Calcium Magnesium (1.6-2.3) mg/dL Total Bilirubin AST ALT Alkaline Phosphatase Troponin I (0.000-0.034) ng/mL NT-Pro-B Natriuret Pep (19.9-100) pg/mL Total Protein Albumin Urine Color Yellow (Yellow) Urine Appearance Clear (Clear) Urine pH 7.0 (5.0-9.0) Ur Specific [place] 1.015 (1.001-1.035) Urine Protein Trace (Negative) mg/dL Urine Glucose (UA) Negative (Negative) mg/dL Urine Ketones Negative (Negative) mg/dL Ur Blood (Man) Negative (Negative) Urine Nitrate Negative (Negative) Urine Bilirubin Negative (Negative) Urine Urobilinogen 0.2 (<2.0) mg/dL Leukocyte Esterase Rfl Negative (Negative) LAURA/UL Urine RBC 0-2 (0-2) /hpf Urine WBC 0-5 (0-3) /hpf Ur Squamous Epith Cells None seen (Few) /hpf Urine Bacteria None seen /hpf Urine Casts 0-2 Influenza A (RT-PCR) (Negative) Influenza B (RT-PCR) (Negative) RSV (RT-PCR) (Negative) SARS-CoV-2 RNA (RT-PCR) (Negative) ABG Data ABG results: 03/26/25 19:18 Puncture Site Right radial ABG pH 7.521 H* ABG pCO2 27.9 L ABG pO2 97.8 ABG PO2/FiO2 Ratio 4.66 ABG HCO3 22.3 ABG O2 Saturation 98.1 ABG O2 Content 18.9 ABG Base Excess 0.7 A-a Gradient 18.5 Oxyhemoglobin 97.7 Total Hemoglobin 13.7 O2 Delivery Device Room air O2 Liters/Min Not Reportable FiO2 21 Discharge Plan Discharge Clinical Impression: CAP (community acquired pneumonia) Qualifiers: Laterality: left Lung location: lower lobe of lung Qualified Code(s): J18.9 - Pneumonia, unspecified organism Patient Disposition: Home, Self-Care Condition: Stable Instructions: Antibiotic Form, Community Acquired Pneumonia (ED) Additional Instructions: Take antibiotics as directed. Follow up very closely with her primary care provider. Return to the emergency department if you develop chest pain, shortness of breath, fever, you are not tolerating food or fluids, or other concerning symptoms. Patient Language: Polish Prescriptions: New amoxicillin-pot clavulanate 875-125 mg tablet 1 tablet PO Q12H Qty: 14 0RF doxycycline hyclate 100 mg capsule 100 mg PO BID Qty: 14 0RF No Action terazosin 5 mg capsule 5 mg PO DAILY donepezil 5 mg tablet 5 mg PO QHS donepezil 10 mg tablet 10 mg PO QHS lorazepam 0.5 mg tablet 0.5 mg PO BID PRN (Reason: anxiety/restlessness) meclizine 25 mg tablet 25 mg PO Q8H PRN (Reason: Dizziness Or Vertigo) losartan 25 mg tablet 25 mg PO DAILY finasteride 5 mg tablet 5 mg PO DAILY Centrum Silver Ultra Men's [id number] mcg tablet 1 tablet PO QAM sulfamethoxazole-trimethoprim [Bactrim DS] 800-160 mg tablet 1 tablet PO Q12H Qty: 8 0RF Rx Instructions: Start on 07/05 through 07/09/23 Follow-up/Referrals: Gaudencio,Zain Goetz MD [Non-Staff] -
--- OUTSIDE RECORDS SUMMARY | 2024-07-14 18:58 | XMS_ITS | Encounter Summary ---
Author Organization [facility] Address [facility] [place] [address] Care Team Providers Care Travel Physical Therapist Name Role Phone Zain Ratliff MD Primary Care Provider [phone] Encounter Details Date Type Department Care Team (Late st Contact Info) Description 08/31/2022 [place] [employer] Message Enc [facility] Family & Internal Medicine [facility] [id number] [place] [phone] [place]ain [place]iff [place] [id number] [place] [id number] Medication increase Social History Tobacco Use [...] on filedocumented in this encounter Care Teams Travel Physical Therapist Relationship Specialty [place] [address] [place] [address] PCP - General FAMILY PRACTICE 01/28/18 documented as of this encounter
--- OUTSIDE RECORDS SUMMARY | 2024-07-14 18:58 | XMS_ITS | Clinical Summary ---
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 Pulse 70 05/09/2023 11:37 AM LINE ASSEMBLER Temperature 36.8 C (98.3 F) 05/09/2023 11:37 AM LINE ASSEMBLER Respiratory Rate 16 05/09/2023 11:37 AM LINE ASSEMBLER Oxygen Saturation 99% 05/09/2023 11:37 AM LINE ASSEMBLER Inhaled Oxygen Concentration - - Weight 101.2 kg (223 lb) 05/09/2023 11:37 AM LINE ASSEMBLER Height 172.7 cm (5' 8 ) 05/09/2023 11:37 AM LINE ASSEMBLER Body Mass Index 33.91 05/09/2023 11:37 AM LINE ASSEMBLER Plan of Treatment Health Maintenance Due Date [...] 02/03/2022, 02/07/2021, Additional history exists 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
--- OUTSIDE RECORDS SUMMARY | 2024-07-14 18:58 | XMS_ITS | Continuity of Care Document ---
Author Organization [facility] Address [address] [place] [address] Phone Care Team Providers Care [place] Leverman Name Role Phone Conversion MD, Doctor Unavailable Unavailabl e Medications Medication Instructions Dosage Effective Dates (start - stop) Status Comments MICRO-K 10 MEQ EXTENCAPS 1 QD - Active LIPITOR 10MG TABS 1 QPM - Active COZAAR 50MG TABS 1 DAILY - Active MECLIZINE 12.5MG TABLET 1 BID - Ac tive TRIAMTERENE W/HCTZ 37.5-25MG T 1 QAM - Active MICRO-K 10MEQ EXTENCAPS 3 QD - No Longer Active GEMFIBROZIL 600MG TABS 1 QAM - No Longer Active MICRO-K 10MEQ EXTENCAPS 3 QD - No Longer Active CHLORTHALIDONE 50MG TABLET 1 QD - No Longer Active MICRO-K 10MEQ EXTENCAPS 3 QD - No Longer Active MAGNESIUM DR 64MG TABS 1 QD - No Longer Active MECLIZINE HCL 12.5MG TABS 1 BID - No Longer Active CHLORTHALIDONE 50MG TABS 1 QD - No Longer Active MICRO-K 10 10MEQ CAPS 1 BID - No Longer Active Advance Directives Directive Yes / No Effective Date File Name No Information Encounters Encounter Description Practice Location Reason(s) For Visit Diagnoses Date Provider Providers Copied on Encounter [facility], [address], [place], [place], [address] , [place] tel: [phone] Conversion Department No Information 6201 1 Conversion Doctor. [address], [place], [address], [place]. [facility], [address], [place], [place], [address] , [place] tel: [phone] [facility] COUGHHYPERLIPIDEM IA NEC/NOSBENIGN HYPERTENSION 0200 6 Patiño Crispin. [address], [place], [place], [address]. tel: [phone] [facility], [address], [place], [place], [address] , [place] tel: [phone] [facility] SCREEN MAL NEOP-RECTUM 0200 3 Patiño Crispin. [address] , [address], [place], [place], [address]. tel: [phone] [facility], [address], [place], [place], [address] , [place] tel: [phone] [facility] SCRN MALIG NEOP-PROSTATEMIXE D HYPERLIPIDEMIALON G-TERM USE MEDS NEC 9200 3 Patiño Crispin. [address], [place], [place], [address]. tel: [phone] [facility], [address], [place], [place], [address] , [place] tel: [phone] [facility] DIZZINESS AND GIDDINESSVACCINAT ION FOR TD-DTND VAC STRPTCS PNEUMNI B 6-200 3 Patiño Crispin. [address], [place], [place], [address]. tel: [phone] [facility], [address], [place], [place], [address] , [place] tel: [phone] [facility] SCREEN MAL NEOP OTH SITE 5-200 2 Patiño Crispin. [address], [place], [place], [address]. tel:[phone] [email or web address], [address], [place], [place], [address] , tel: [phone] [facility] SCREEN-DIABETES MELLITUSABNORMAL GLUCOSE Yonny-0 1-200 2 Patiño Crispin. [address] , [address], [place], [place], [address]. tel:[phone] [email or web address] [facility], [address], [place], [place], [address] , tel: [phone] [facility] NAUSEA ALONE 4-200 1 Conversion Doctor. [address] [place], [address], . [email or web address] [facility], [address], [place], [place], [address] , tel: [phone] [facility] DVRTCLI COLON W/O HMRHG 9-200 0 Patiño Crispin. [address] , [address], [place], [place], [address]. tel:[phone] Family History Family Member Type Diagnosis Age At Onset No Information Immunizations Vaccine Date Status Comments 53537 - TD administered Source: Source Unspecified 79617 - Pneumococcal_PPV23 administered S ource: Source Unspecified Payers Payer name Insurance type Covered green party ID Authoriza tion(s) No Information Social History [...]
--- OUTSIDE RECORDS SUMMARY | 2024-07-14 18:58 | XMS_ITS | Encounter Summary ---
Author Organization [facility] Address [facility] [place] [address] Care Team Providers Care Distribution Agent Name Role Phone Zain Ratliff MD Primary Care Provider [phone] Encounter Details Date Type Department Care Team (Late st Contact Info) Description 10/10/2022 Asteriont Message Enc [facility] Family & Internal Medicine [facility] [address] [place] [address] [place] [id number] [place] [phone] Devon's agitation Social History Tobacco Use Types [...] on filedocumented in this encounter Care Teams Distribution Agent Relationship Specialty [place] [address] [place] [address] PCP - General FAMILY PRACTICE 01/28/18 documented as of this encounter
--- OUTSIDE RECORDS SUMMARY | 2024-07-14 18:58 | XMS_ITS | Clinical Summary ---
Author Organization [facility] Address [address] [place] [address] Care Team Providers Care Head Strength And Conditioning Coach Name Role Phone Unavailable Primary Care Provider Unavailabl e Social History Tobacco Use Types Packs/Day Years Used Date Smoking Tobacco: Never Assessed Sex and Gender Information Value Date Recorded Sex Assigned at Not on file Legal Sex Male 11:51 AM PLACEMENT DIRECTOR Gender Identity Not on file Sexual [...]
--- OUTSIDE RECORDS SUMMARY | 2024-07-14 18:58 | XMS_ITS | Encounter Summary ---
Author Organization [facility] Address [facility] [place] [address] Care Team Providers Care Car Wash Supervisor Name Role Phone Zain Ratliff MD Primary Care Provider Encounter Details Date Type Department Care Team (Late st Contact Info) Description 03/24/2023 Plurality Message Enc [facility] Family & Internal Medicine [address] [address] [place], [facility] Provider Due for follow up appt Social [...] on filedocumented in this encounter Care Teams Car Wash Supervisor Relationship Specialty [place] [address] [place] [address] PCP - General FAMILY PRACTICE 01/28/18 documented as of this encounter
--- OUTSIDE RECORDS SUMMARY | 2024-07-14 18:58 | XMS_ITS | CONTINUITY OF CARE DOCUMENT ---
Author Name irina arevalo Address Unknown Organization [facility] Address [address] [facility] [address] [place] [address] Phone [phone] Care Team Providers Care Manager Internet Name Role Phone John Cooper MD Unavailable [phone] John Cooper MD Unavailable INSURANCE PROVIDERS Payer name Policy type / Coverage type [place] [employer] party ID AETNA MEDICARE GOLD ADVANTAGE HMO Medicare [id number]
--- OUTSIDE RECORDS SUMMARY | 2024-07-14 18:58 | XMS_ITS | Encounter Summary ---
Author Organization [facility] Address [facility] [place] [address] Care Team Providers Care Soda Flaker Name Role Phone Zain Ratliff MD Primary Care Provider [phone] Encounter Details Date Type Department Care Team (Late st Contact Info) Description 06/07/2020 [employer] Message [facility] [address] [place] [address] [place] [address], [place] [phone] RE: Question Social History Tobacco Use Types [...] on filedocumented in this encounter Care Teams Soda Flaker Relationship Specialty [place] [address] [place] [address] PCP - General FAMILY PRACTICE 01/28/18 documented as of this encounter
[2024-07-14 19:07] LABS: Basophils Absolute Auto 0.1 K/mm3 (0.0-0.1); Basophils Percent Auto 0.6 % (0.2-1.2); Eosinophils Absolute Auto 0.3 K/mm3 (0-0.3); Eosinophils Percent Auto 2.3 % (0-4.4); Hematocrit 39.9 % (42.0-52.0); Hemoglobin 13.4 g/dL (14.0-18.0); Immature Granulocyte Absolute 0.07 K/mm3 (0.00-0.031); Immature Granulocyte Percent A 0.6 % (0-0.5); Lymphocytes Absolute Auto 4.25 K/mm3 (0.9-3.2); Lymphocytes Percent Auto 35.4 % (18.3-44.2); Mean Corpuscular HGB Conc 33.6 g/dl (32-36); Mean Corpuscular Hemoglobin 31.2 pg (26-34); Mean Corpuscular Volume 92.8 fl (80-100); Mean Platelet Volume 10.5 fl (7.4-10.4); Monocytes Absolute Auto 1.6 K/mm3 (0.1-0.6); Monocytes Percent Auto 13.1 % (2.6-8.5); Neutrophils Absolute Auto 5.8 K/mm3 (1.3-6.7); Platelet Count Result 226 k/mm3 (150-375)
[2024-07-14 19:17] LABS: Alanine Aminotransferase 21 U/L (6-50); Albumin Level 4.6 g/dL (3.5-5.1); Alkaline Phosphatase 78 U/L (38-126); Anion Gap 10 mmol/L (4-12); Aspartate Amino Transferase 26 U/L (17-59); Bilirubin,Total 0.2 mg/dL (0.2-1.3); Blood Urea Nitrogen 28 mg/dL (9-20); Calcium 10.1 mg/dL (8.4-10.2); Carbon Dioxide 25 mmol/L (22-30); Chloride 101 mmol/L (98-107); Estimated CRCL calculation 31 ml/min; Estimated Glomerular Filt Rate 40; Glucose 111 mg/dL (65-110); Magnesium 1.7 mg/dL (1.6-2.3); Potassium 4.2 mmol/L (3.4-5.0); Prothrombin Time 14.1 Seconds (11.1-14.7); Sodium 136 mmol/L (137-145)
[2024-07-14 19:18] LABS: Partial Thromboplastin Time 35.4 Seconds (22.3-36.8)
[2024-07-14 19:31] LABS: Alveolar/Arterial O2 Gradient 18.5 mmHg; Base Excess ABG 0.7 mEq/l (+/-2.0); Fractional Inspired Oxygen 21 %; HCO3 ABG 22.3 mEq/l (22.0-26.0); Oxygen Content ABG 18.9 %vol (16.0-22.0); Oxygen Saturation ABG 98.1 % (95.0-100.0); Oxyhemoglobin 97.7 % THb (90.0-100.0); PCO2 ABG 27.9 mmHg (35.0-45.0); PO2 ABG 97.8 mmHg (80.0-100.0); PO2 FiO2 Ratio Arterial Blood 4.66 %; Total Hemoglobin 13.7 g/dL (12.0-18.0)
[2024-07-14] MEDS: LORazepam INJ (*CRX) 2 MG/ML VIAL 0.5 MG IV PUSH ×2 (19:32→19:59)
[2024-07-14 19:35] LABS: pH ABG 7.521 (7.350-7.450)
[2024-07-14 19:36] LABS: Device ROOM AIR; Modified Allen's Test Pass; Site Drawn RIGHT RADIAL
[2024-07-14 19:39] LABS: NT Pro B Type Natriuretic Pept 391 pg/mL (19.9-100); Troponin I < 0.012 ng/mL (0.000-0.034)
[2024-07-14 19:45] LABS: Influenza A QL RT-PCR Negative (Negative); Influenza B QL RT-PCR Negative (Negative); RSV RNA, RT-PCR Negative (Negative); SARS-CoV-2 RNA PCR Negative (Negative)
[2024-07-14 20:00] LABS: Add Urine Microscopic? YES; Appearance Urine Clear (Clear); Bacteria Urine None Seen /hpf; Bilirubin Urine Negative (Negative); Blood Urine Negative (Negative); Color Urine Yellow (Yellow); Glucose Urine UA Negative (Negative); Ketones Urine Negative (Negative); Leukocyte Esterase Ur Negative LEU/UL (Negative); Nitrate Urine Negative (Negative); Non Pathogenic Casts 0-2; Protein Urine Trace mg/dL (Negative); RBC Urine 0-2 /hpf (0-2); Specific Grav Ur 1.015 (1.001-1.035); Squamous Epithelial Cell Urine None Seen /hpf (Few); Urobilinogen Urine 0.2 mg/dL (<2.0); WBC Urine 0-5 /hpf (0-3)
[2024-07-14 20:50] LABS: Lactic Acid Reflex 2.6 mmol/L (0.7-2.0)
[2024-07-14 21:14] VITALS: BP 126/57; PULSE 70; RESP 22; TEMP 36.7; O2SAT 97
[2024-07-14] MEDS: SODIUM CHLORIDE 0.9% IV 1,000 ML 999 ML IV CONT (21:25)
[2024-07-14] MEDS: AZITHROMYCIN 500 MG/NS 250 ML 500 MG/250 ML BAG 250 MG IVPB (21:34)
[2024-07-14 22:30] LABS: Reflex Lactic Acid Yes or No Add Lactic
--- NOTE | 2024-07-14 22:33 | PC.NURSE ---
per JAYLEN Aguiar, lactic is to be drawn when fluids are done infusing.
[2024-07-14 23:52] LABS: Lactic Acid 1.2 mmol/L (0.7-2.0)
[2024-07-15 00:33] VITALS: BP 147/74; PULSE 78; RESP 22; TEMP 36.8
== END 2024-07-15 00:39 | disposition home or self-care (01) ==
PROVIDERS: Emergency Provider Physician Assistant
DX: J18.9 Pneumonia, unspecified organism (principal); Z20.822 Contact with and (suspected) exposure to COVID-19; F03.90 Unspecified dementia, unspecified severity, without behavioral disturbance, psychotic disturbance, mood disturbance, and anxiety; I12.9 Hypertensive chronic kidney disease with stage 1 through stage 4 chronic kidney disease, or unspecified chronic kidney disease; N18.9 Chronic kidney disease, unspecified; N40.0 Benign prostatic hyperplasia without lower urinary tract symptoms; E78.00 Pure hypercholesterolemia, unspecified; H81.09 Meniere's disease, unspecified ear; Z66 Do not resuscitate; Z96.641 Presence of right artificial hip joint; Z86.0100 Personal history of colon polyps, unspecified; Z87.11 Personal history of peptic ulcer disease; Z85.51 Personal history of malignant neoplasm of bladder; Z87.891 Personal history of nicotine dependence; I44.0 Atrioventricular block, first degree; R94.31 Abnormal electrocardiogram [ECG] [EKG]
CPT/HCPCS: 36415; 36600; 71045; 80053; 81001; 82805; 83605; 83735; 83880; 84484; 85018; 85025; 85610; 85730; 87040; 87637; 93005; 96361; 96365; 96366; 96367; 96375; 96376; 99284; J0456; J0696; J2060; J7030

== ENCOUNTER 2024-09-22 10:32 | Emergency (ER) | payer MEDICARE, SELFPAY ==
[2024-09-22] VITALS (16 sets, daily range): BP systolic 148–186; BP diastolic 68–103; PULSE 58–66; RESP 15–22; TEMP 36.5; O2SAT 95–100
--- NOTE | ~2024-09-22 | XR_ITS ---
XR chest 1V portable 09/22/2024 11:25 Indication: Congestion and shortness of breath Procedure: AP portable chest Comparison: Comparison to multiple prior studies sequentially, with oldest reviewed study dated 02/20. Findings: Heart size normal. No focal air space disease, pulmonary edema, pleural effusion or suspect ed pneumothorax. Impression: 1: No acute cardiopulmonary disease. Reviewed, dictated and finalized at location A. Impression: 1: No acute cardiopulmonary disease.
--- NOTE | 2024-09-22 10:49 | ECG_ITS ---
Test Date: 2024-09-22 10:56:54 Measurements Intervals [place] Rate: 61 P: 21 CT: 189 QRS: 102 QRSD: 112 T: 49 QT: 408 QTc: 411 Interpretive Statements SINUS RHYTHM RIGHT AXIS DEVIATION BORDERLINE AV CONDUCTION DELAY INTRAVENTRICULAR CONDUCTION DELAY DELAYED PRECORDIAL R/S TRANSITION BASELINE ARTIFACT- I, II, III, AVR, AVL ,AVF, V1-V6 BORDERLINE ECG Compared to ECG 07/14/2024 18:33:35 NO SIGNIFICANT CHANGE Electronically Signed On 09-22-2024 11:41:12 CDT by Leonidas Handy D.O.
--- OUTSIDE RECORDS SUMMARY | 2024-09-22 11:15 | XMS_ITS | Continuity of Care Document ---
Author Organization [facility] Address [address] [place] [address] Phone Care Team Providers Care Toe Puncher Name Role Phone Conversion MD, Doctor Unavailable Unavailabl e Medications Medication Instructions Dosage Effective Dates (start - stop) Status Comments MICRO-K 10 MEQ EXTENCAPS 1 QD - Active LIPITOR 10MG TABS 1 QPM - Active COZAAR 50MG TABS 1 DAILY - Active TRIAMTERENE W/HCTZ 37.5-25MG T 1 QAM - Active MECLIZINE 12.5MG TABLET 1 BID - Ac tive MICRO-K 10MEQ EXTENCAPS 3 QD - No Longer Active GEMFIBROZIL 600MG TABS 1 QAM - No Longer Active MICRO-K 10MEQ EXTENCAPS 3 QD - No Longer Active CHLORTHALIDONE 50MG TABLET 1 QD - No Longer Active MAGNESIUM DR 64MG TABS 1 QD - No Longer Active MICRO-K 10MEQ EXTENCAPS 3 QD - No Longer Active MECLIZINE HCL 12.5MG TABS 1 BID - No Longer Active CHLORTHALIDONE 50MG TABS 1 QD - No Longer Active MICRO-K 10 10MEQ CAPS 1 BID - No Longer Active Advance Directives Directive Yes / No Effective Date File Name No Information Encounters Encounter Description Practice Location Reason(s) For Visit Diagnoses Date Provider Providers Copied on Encounter [facility], [address], [place], [place], [address] , [place] tel: [phone] Conversion Department No Information 6201 1 Conversion Doctor. [address], [place], [address], [place]. [facility], [address], [place], [place], [address] , [place] tel: [phone] [facility] COUGHHYPERLIPIDEM IA NEC/NOSBENIGN HYPERTENSION 0200 6 Patiño Crispin. [address], [place], [place], [address]. tel: [phone] [facility], [address], [place], [place], [address] , [place] tel: [phone] [facility] SCREEN MAL NEOP-RECTUM 0200 3 Patiño Crispin. [address] , [address], [place], [place], [address]. tel: [phone] [facility], [address], [place], [place], [address] , [place] tel: [phone] [facility] SCRN MALIG NEOP-PROSTATEMIXE D HYPERLIPIDEMIALON G-TERM USE MEDS NEC 9200 3 Patiño Crispin. [address], [place], [place], [address]. tel: [phone] [facility], [address], [place], [place], [address] , [place] tel: [phone] [facility] DIZZINESS AND GIDDINESSVACCINAT ION FOR TD-DTND VAC STRPTCS PNEUMNI B 6-200 3 Patiño Crispin. [address], [place], [place], [address]. tel: [phone] [facility], [address], [place], [place], [address] , [place] tel: [phone] [facility] SCREEN MAL NEOP OTH SITE 5-200 2 Pati[address] Crispin. [address], [place], [place], [address]. tel:[phone] [facility], [address], [place], [place], [address] , tel: [phone] [facility] SCREEN-DIABETES MELLITUSABNORMAL GLUCOSE Yonny-0 1-200 2 Patiño Crispin. [address], [place], [place], [address]. tel:[phone] [facility], [address], [place], [place], [address] , tel: [phone] [facility] NAUSEA ALONE 4-200 1 Conversion Doctor. [address] [place], [address], . [facility], [address], [place], [place], [address] , tel: [phone] [facility] DVRTCLI COLON W/O HMRHG 9-200 0 Patiño Crispin. [address], [place], [place], [address]. tel:[phone] Family History Family Member Type Diagnosis Age At Onset No Information Immunizations Vaccine Date Status Comments 40004 - TD administered Source: Source Unspecified [address] - Pneumococcal_PPV23 administered S ource: Source Unspecified Payers Payer name Insurance type Covered republican ID Authoriza tion(s) No Information Social History [...]
--- OUTSIDE RECORDS SUMMARY | 2024-09-22 11:15 | XMS_ITS | CONTINUITY OF CARE DOCUMENT ---
Author Name irina arevalo Address Unknown Organization [facility] Address [address] [facility] [address] [place] [address] Phone [phone] Care Team Providers Care Foreman/Project Manager Name Role Phone John Cooper MD Unavailable John Cooper MD Unavailable [phone] INSURANCE PROVIDERS Payer name Policy type / Coverage type [place] red green party ID AETNA MEDICARE GOLD ADVANTAGE HMO Medicare [id number]
[2024-09-22 11:21] LABS: Basophils Absolute Auto 0.1 K/mm3 (0.0-0.1); Basophils Percent Auto 0.8 % (0.2-1.2); Eosinophils Absolute Auto 0.2 K/mm3 (0-0.3); Hematocrit 41.5 % (42.0-52.0); Immature Granulocyte Absolute 0.04 K/mm3 (0.00-0.031); Immature Granulocyte Percent A 0.3 % (0-0.5); Lymphocytes Absolute Auto 3.85 K/mm3 (0.9-3.2); Lymphocytes Percent Auto 32.6 % (18.3-44.2); Mean Corpuscular HGB Conc 33.7 g/dl (32-36); Mean Corpuscular Hemoglobin 31.1 pg (26-34); Mean Corpuscular Volume 92.2 fl (80-100); Mean Platelet Volume 10.7 fl (7.4-10.4); Monocytes Absolute Auto 1.4 K/mm3 (0.1-0.6); Monocytes Percent Auto 11.9 % (2.6-8.5); Neutrophils Absolute Auto 6.2 K/mm3 (1.3-6.7); Neutrophils Percent Auto 52.4 % (45.5-73.1); Platelet Count Result 239 k/mm3 (150-375); Red Cell Distribution Width 12.9 % (11.5-14.5); White Blood Count 11.8 K/mm3 (4.5-10.0)
[2024-09-22 11:31] LABS: Alanine Aminotransferase 22 U/L (6-50); Albumin Level 4.5 g/dL (3.5-5.1); Alkaline Phosphatase 66 U/L (38-126); Anion Gap 11 mmol/L (4-12); Aspartate Amino Transferase 32 U/L (17-59); Bilirubin,Total 0.5 mg/dL (0.2-1.3); Blood Urea Nitrogen 30 mg/dL (9-20); Calcium 10.3 mg/dL (8.4-10.2); Carbon Dioxide 24 mmol/L (22-30); Chloride 102 mmol/L (98-107); Estimated CRCL calculation 28 ml/min; Estimated Glomerular Filt Rate 38; Glucose 102 mg/dL (65-110); Potassium 4.1 mmol/L (3.4-5.0); Sodium 137 mmol/L (137-145); Total Protein 7.7 g/dL (6.3-8.2)
[2024-09-22 12:04] LABS: Influenza A QL RT-PCR Negative (Negative); Influenza B QL RT-PCR Negative (Negative); RSV RNA, RT-PCR Negative (Negative); SARS-CoV-2 RNA PCR Negative (Negative)
--- NOTE | 2024-09-22 12:18 | ED_ITS ---
HPI - SOB/Dyspnea General Chief Complaint: Shortness of Breath/Dyspnea Stated Complaint: SOB with weakness Time Seen by Provider: 09/22/24 10:52 History of Present Illness HPI Narrative: Patient was playing chess at his assisted living facility when he suddenly had an episode where he seemed to be very short of breath, turned red, and started shaking, they lay him down on the floor after which he started breathing more comfortably and is currently back at his baseline. Patient denies any complaint, he denies any chest pain, trouble breathing, he did have pneumonia about 2 months ago and since then per halfway he may have had some more shortness of breath. Related Data Home Medications ?Medication ?Instructions ?Recorded ?Confirmed ?Last Taken ?Type donepezil 10 mg tablet 10 mg PO QHS 07/03/23 07/03/23 Unknown History donepezil 5 mg tablet 5 mg PO QHS 07/03/23 07/03/23 Unknown History finasteride 5 mg tablet 5 mg PO DAILY 07/03/23 07/03/23 Unknown History lorazepam 0.5 mg tablet 0.5 mg PO BID PRN 07/03/23 07/03/23 Unknown History anxiety/restlessness losartan 25 mg tablet 25 mg PO DAILY 07/03/23 07/03/23 Unknown History meclizine 25 mg tablet 25 mg PO Q8H PRN Dizziness Or 07/03/23 07/03/23 Unknown History Vertigo bshfnrlw-py-meffe 300 mcg-K 60 1 tablet PO QAM 07/03/23 07/03/23 Unknown History mcg-lycop 600 mcg-lutein 300 mcg tablet (Centrum Silver Ultra Men's) terazosin 5 mg capsule 5 mg PO DAILY 07/03/23 07/03/23 Unknown History Allergies Allergy/AdvReac Type Severity Reaction Status Date / Time No Known Allergies Allergy Verified 09/22/24 10:46 Review of Systems 2 Review of Systems: All systems reviewed & are unremarkable except as noted in HPI and below [facility] Medical History Medical History Meniere's disease, unspecified ear Unspecified dementia, unspecified severity, without behavioral disturbance, psychotic disturbance, mood disturbance, and anxiety BPH (benign prostatic hyperplasia) CKD (chronic kidney disease) Degenerative joint disease Hx of bladder cancer 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. He quit smoking in 2019. No alcohol or drug use. Code status - DNR Smoking status: Former smoker Second hand tobacco smoke exposure: No Alcohol intake: current Substance use: never Spiritual care concerns: No Exam 2 Narrative: EXAMINATION OF ORGAN SYSTEMS/BODY AREAS: Constitutional: Vital signs per nursing GENERAL:[No acute distress, non-toxic appearing.] Extremely pleasant. HEAD: Normal with no signs of head trauma. EYES: EOMI, injected conjunctiva ENT: No facial droop LUNGS: Nonlabored breathing. Clear to auscultation bilaterally HEART: [Regular rate and rhythm] ABD: [Soft], [nontender to palpation] EXT: Normal range of motion SKIN: [No rashes or lesions.] NEURO: [Alert. No gross focal sensory or strength deficits.] PSYCH: Normal affect Course Vital Signs Vital signs: Vital Signs Temperature 97.7 F 09/22/24 10:40 Pulse Rate 63 09/22/24 10:40 Respiratory Rate 20 09/22/24 10:40 Blood Pressure 186/68 H 09/22/24 10:40 Pulse Oximetry 100 09/22/24 10:40 Oxygen Delivery Room Air 09/22/24 10:40 Temperature 97.7 F 09/22/24 10:40 Pulse Rate 63 09/22/24 12:16 Respiratory Rate 17 09/22/24 12:16 Blood Pressure 164/72 H 09/22/24 12:16 Pulse Oximetry 97 09/22/24 12:16 Oxygen Delivery Room Air 09/22/24 11:15 MDM - SOB/Dyspnea MDM Narrative Medical decision making narrative: Patient presents here with episode where he was found to be shaking and short of breath, which quickly resolved, he is now back to his baseline. Vital signs within acceptable limits, he reportedly had been congested recently, swabs are negative, chest x-ray on my independent interpretation unremarkable and improved from prior, EKG on my independent interpretation showing sinus rhythm rate 61, right axis, PA 189, QRS 112, QTC 411, no significant ST elevations or depressions signs of acute ischemia or arrhythmia I do have a long discussion with the daughter at bedside, patient is back at baseline, he is comfort care/DNR/DNI in the ED not want any aggressive or invasive procedures done or extensive imaging, we did discuss that this may have been a possible seizure or syncope or cardiac cause, but that they would prefer to hold off on any further or intensive or invasive evaluation or treatment, and patient would really prefer to go back to his assisted living facility instead of being admitted. They are given follow-up information for Cardiology as they would like, and that they can always return to the ER if they would like any further workup. At Time of discharge patient was smiling, very pleasant, in no distress, denying any complaints. Lab Data 09/22/24 11:04 09/22/24 11:04 Labs: Lab Results 09/22/24 Range/Units 11:04 WBC 11.8 H (4.5-10.0) K/mm3 RBC 4.50 L (4.6-6.20) M/mm3 Hgb 14.0 (14.0-18.0) g/dL Hct 41.5 L (42.0-52.0) % MCV 92.2 (80-100) fl MCH 31.1 (26-34) pg MCHC 33.7 (32-36) g/dl RDW 12.9 (11.5-14.5) % Plt Count 239 (150-375) k/mm3 MPV 10.7 H (7.4-10.4) fl Immature Gran % (Auto) 0.3 (0-0.5) % Neut % (Auto) 52.4 (45.5-73.1) % Lymph % (Auto) 32.6 (18.3-44.2) % [place] % (Auto) 11.9 H (2.6-8.5) % Eos % (Auto) 2.0 (0-4.4) % Baso % (Auto) 0.8 (0.2-1.2) % Lymph # (Auto) 3.85 H (0.9-3.2) K/mm3 [place]win # (Auto) 1.4 H (0.1-0.6) K/mm3 Eos # (Auto) 0.2 (0-0.3) K/mm3 Baso # (Auto) 0.1 (0.0-0.1) K/mm3 Abs Immat Gran (auto) 0.04 H (0.00-0.031) K/mm3 Absolute Neuts (auto) 6.2 (1.3-6.7) K/mm3 Absolute Nucleated RBC 0.000 (0.0-0.012) K/mm3 Nucleated RBC % 0.0 (0.0-0.2) % Sodium 137 (137-145) mmol/L Potassium 4.1 (3.4-5.0) mmol/L Chloride 102 (98-107) mmol/L Carbon Dioxide 24 (22-30) mmol/L Anion Gap 11 (4-12) mmol/L BUN 30 H (9-20) mg/dL Creatinine 1.69 H (0.7-1.3) mg/dL Estim Creat Clear Calc 28 ml/min Estimated GFR 38 L (59 - ) Glucose 102 (65-110) mg/dL Calcium 10.3 H (8.4-10.2) mg/dL Total Bilirubin 0.5 (0.2-1.3) mg/dL AST 32 (17-59) U/L ALT 22 (6-50) U/L Alkaline Phosphatase 66 (38-126) U/L Total Protein 7.7 (6.3-8.2) g/dL Albumin 4.5 (3.5-5.1) g/dL Influenza A (RT-PCR) Negative (Negative) Influenza B (RT-PCR) Negative (Negative) RSV (RT-PCR) Negative (Negative) SARS-CoV-2 RNA (RT-PCR) Negative (Negative) Discharge Plan Discharge Clinical Impression: Shortness of breath Patient Disposition: [facility] Jail[facility]As[facility] Living Condition: Stable Instructions: Shortness of Breath (ED) Additional Instructions: Please follow up with your doctor; you can always return to the ER for any further issues. Patient Language: Telugu Prescriptions: No Action terazosin 5 mg capsule 5 mg PO DAILY donepezil 5 mg tablet 5 mg PO QHS donepezil 10 mg tablet 10 mg PO QHS lorazepam 0.5 mg tablet 0.5 mg PO BID PRN (Reason: anxiety/restlessness) meclizine 25 mg tablet 25 mg PO Q8H PRN (Reason: Dizziness Or Vertigo) losartan 25 mg tablet 25 mg PO DAILY finasteride 5 mg tablet 5 mg PO DAILY Centrum Silver Ultra Men's 620-64-501-300 mcg tablet 1 tablet PO QAM sulfamethoxazole-trimethoprim [Bactrim DS] 800-160 mg tablet 1 tablet PO Q12H Qty: 8 0RF Rx Instructions: Start on 07/05 through 07/09/23 amoxicillin-pot clavulanate 875-125 mg tablet 1 tablet PO Q12H Qty: 14 0RF doxycycline hyclate 100 mg capsule 100 mg PO BID Qty: 14 0RF Follow-up/Referrals: Amanda Browning MD [Physician] - 2 Days UNKNOWN,DOCTOR [Primary Care Provider] -
== END 2024-09-22 12:40 ==
PROVIDERS: Emergency Provider Emergency Medicine
DX: R06.02 Shortness of breath (principal); Z20.822 Contact with and (suspected) exposure to COVID-19; F03.90 Unspecified dementia, unspecified severity, without behavioral disturbance, psychotic disturbance, mood disturbance, and anxiety; I12.9 Hypertensive chronic kidney disease with stage 1 through stage 4 chronic kidney disease, or unspecified chronic kidney disease; N18.9 Chronic kidney disease, unspecified; E78.00 Pure hypercholesterolemia, unspecified; N40.0 Benign prostatic hyperplasia without lower urinary tract symptoms; H81.09 Meniere's disease, unspecified ear; Z66 Do not resuscitate; Z86.0100 Personal history of colon polyps, unspecified; Z85.51 Personal history of malignant neoplasm of bladder; Z87.11 Personal history of peptic ulcer disease; Z96.641 Presence of right artificial hip joint; Z87.891 Personal history of nicotine dependence; Z79.899 Other long term (current) drug therapy; I45.9 Conduction disorder, unspecified
CPT/HCPCS: 36415; 71045; 80053; 85025; 87637; 93005; 99284